=== PATIENT | male | born 1955 | race Caucasian/White ===

== ENCOUNTER → 2017-01-24 | Outpatient (CLI) | payer OTHER ==
[~2017-01-24] MED LIST: ATOR-24 PO; FLUO40CA8 PO; FRRS300 PO; GABA600T PO; GLC/500 PO; IPRA1AER2 INH; LISI-461 PO; MECL1TAB42 PO; PRLSR20 PO; ROPI1TAB PO; TAMS0.4C38 PO; TRAZ50TA35 PO
[2017-01-24 12:38] LABS: ALT/SGPT 19 U/L (12-78); BLOOD UREA NITROGEN 21 mg/dl (7-18); CALCIUM 9.2 mg/dl (8.5-10.1); CARBON DIOXIDE 26 mmol/L (21-32); CHLORIDE 106 mmol/L (98-107); CHOLESTEROL 155 mg/dl (0-200); GLUCOSE 137 mg/dl (70-99); SODIUM 137 mmol/L (136-145); TRIGLYCERIDES 120 mg/dl (0-150); VERY LOW DENSITY LIPOPROT CALC 24 mg/dl
[2017-01-24 12:40] LABS: CHOLESTEROL/HDL RATIO 3.6; HDL CHOLESTEROL 43 mg/dl; LDL CHOLESTEROL CALCULATED 88 mg/dl
[2017-01-24 13:44] LABS: ESTIMATED AVERAGE GLUCOSE 148 mg/dl; HA1C FLAG Normal (Normal)
== END | disposition home or self-care (01) ==
LOC: C.LABPBG 09:57
PROVIDERS: ATTEND Family Medicine
DX: Z11.59 Encounter for screening for other viral diseases (principal); E11.9 Type 2 diabetes mellitus without complications

== ENCOUNTER → 2017-01-29 | Day surgery (SDC) | payer OTHER ==
[2017-01-21 15:26] VITALS: Ht 175.3 cm; Wt 96.8 kg
[~2017-01-29] VITALS: Ht 175.3 cm; Wt 96.8 kg
[~2017-01-29] MED LIST changes: +LIDOCAINE HCL 2% 2 ML VIAL (20MG/ML) ONE; +PROPOFOL IV EMULSION 10 MG/ML 20 ML VIAL IV ONE; +SODIUM CHLORIDE 0.9% 500ML 500 ML IV ONE
--- NOTE | 2017-01-29 10:26 | Endo History and Physical ---
History & Physical Date of Service: Jan 29, 2017. Chief Complaint: Screening Referring Physician: Yessenia Mares History of Present Illness 61 yo CM who presents for colonoscopy secondary to history of colon polyps Past Surgical History Hx Cardiac Surgery: No Hx Internal Defibrillator: No Hx Pacemaker: No Hx Abdominal Surgery: Yes (INGUINAL HERNIA REPAIR) Hx of Implantable Prosthesis: No Hx Post-Op Nausea and Vomiting: No Hx Cancer Surgery: No Hx Thoracic Surgery: No Hx Orthopedic: Yes (LEFT WRIST SURGERY) Hx Urinary Tract Surgery: No Family History None Social History Smoking Status: Never Smoker Hx Substance Use: Yes (MORPHINE IN PAIN PUMP) Hx Alcohol Use: No Allergies Coded Allergies: Diclofenac (Verified Adverse Reaction, Intermediate, DIZZINESS, 01/29/17) Current Medications Reported Home Medications Medications Dose Route/Sig Max Daily Dose Days Date Category Trazodone (Trazodone HCl) 50 Mg Tab 50-100 Mg PO HS PRN 01/21/17 Reported Requip (Ropinirole HCl) 1 Mg Tab 1 Mg PO HS 01/21/17 Reported Meclizine Hcl 25 Mg Tab 1 Tab PO TID PRN 10 01/21/17 Reported Zestril (Lisinopril) 10 Mg Tab 10 Mg PO DAILY 01/21/17 Reported Neurontin (Gabapentin) 600 Mg Tab 600 Mg PO TID 01/21/17 Reported Prozac (Fluoxetine HCl) 40 Mg Cap 40 Mg PO QAM 01/21/17 Reported Combivent Respimat (Ipratropium-Albuterol) 1 Aer Aer 1 Puffs INH QID PRN 01/21/17 Reported Glucophage (Metformin Hcl) 500 Mg Tab 500 Mg PO BID 03/20/16 Reported Flomax (Tamsulosin Hcl) 0.4 Mg Cap 0.4 Mg PO DAILY 30 06/17/15 Reported Ferrous Sulfate 325 Mg Tab 325 Mg PO DAILY 06/17/15 Reported Prilosec (Omeprazole) 20 Mg Capcr 20 Mg PO BID 11/28/09 Reported Lipitor (Atorvastatin Calcium) 40 Mg Tab 80 Mg PO DAILY 11/01/08 Reported Vital Signs Weight (Kilograms): 96.82 Height (Feet): 5 Height (Inches): 9 Physical Exam General Appearance: WD/WN, no apparent distress Respiratory/Chest: Auscultation: breath sounds normal Cardiovascular: Heart Auscultation: RRR Abdomen: Bowel Sounds: normal Inspection & Palpation: soft, non-distended, no tenderness, guarding & rebound Assessment and Plan Assessment: 61 yo CM who presents for colonoscopy secondary to history of colon polyps Plan: Proceed with colonoscopy.
--- NOTE | 2017-01-29 10:48 | Discharge Instructions ---
Endoscopy Patient Instructions Date / Procedure(s) Performed Jan 29, 2017. Colonoscopy Allergy Information Coded Allergies: Diclofenac (Verified Adverse Reaction, Intermediate, DIZZINESS, 01/29/17) Discharge Date / Findings Jan 29, 2017. Diverticulosis Internal hemorrhoids Medication Instructions OK to resume all medications today as prescribed Reported Home Medications Medications Dose Route/Sig Max Daily Dose Days Date Category Trazodone (Trazodone HCl) 50 Mg Tab 50-100 Mg PO HS PRN 01/21/17 Reported Requip (Ropinirole HCl) 1 Mg Tab 1 Mg PO HS 01/21/17 Reported Meclizine Hcl 25 Mg Tab 1 Tab PO TID PRN 10 01/21/17 Reported Zestril (Lisinopril) 10 Mg Tab 10 Mg PO DAILY 01/21/17 Reported Neurontin (Gabapentin) 600 Mg Tab 600 Mg PO TID 01/21/17 Reported Prozac (Fluoxetine HCl) 40 Mg Cap 40 Mg PO QAM 01/21/17 Reported Combivent Respimat (Ipratropium-Albuterol) 1 Aer Aer 1 Puffs INH QID PRN 01/21/17 Reported Glucophage (Metformin Hcl) 500 Mg Tab 500 Mg PO BID 03/20/16 Reported Flomax (Tamsulosin Hcl) 0.4 Mg Cap 0.4 Mg PO DAILY 30 06/17/15 Reported Ferrous Sulfate 325 Mg Tab 325 Mg PO DAILY 06/17/15 Reported Prilosec (Omeprazole) 20 Mg Capcr 20 Mg PO BID 11/28/09 Reported Lipitor (Atorvastatin Calcium) 40 Mg Tab 80 Mg PO DAILY 11/01/08 Reported Provider Instructions Activity Restrictions - No exercising or heavy lifting for 24 hours. - Do not drink alcohol the day of the procedure. - Do not drive a car or operate machinery until the day after the procedure. - Do not make any important decisions or sign important papers in 24 hours after the procedure. Following Day: - Return to full activity which may include returning to work/school. Diet Start your diet with liquids and light foods (jello, soup, juice, toast). Then eat your usual diet if not nauseated. Treatment For Common After Affects For mild abdominal pain, bloating, or excessive gas: - Rest - Eat lightly - Lie on right side Follow-Up Information Follow-up with Yessenia Mares as scheduled Anesthesia Information What You Should Know You have had a procedure that required some medicine to reduce anxiety and discomfort. This treatment is called moderate sedation. After receiving the treatment, you may be sleepy, but you will be able to breathe on your own. The effects of the treatment may last for several hours. Follow these instructions along with Activity/Diet recommendations noted above: * Do NOT do anything where dizziness or clumsiness would be dangerous. * Rest quietly at home today, then you can be up and about tomorrow. * Have a responsible person stay with you the rest of today. * You may have had an I.V. today. If so, you may take the dressing off later today. Recommendations Call your doctor if: * Trouble breathing * Continuous vomiting for more than 24 hours * Temperature above 101 degrees * Severe abdominal pain or bloating * Pain not relieved by pain medicine ordered * There is increased drainage or redness from any incision * A large amount of rectal bleeding greater than 2-3 tablespoons. (If you had a polyp/s removed or have hemorrhoids, a small amount of blood - from the rectum is to be expected.) * You have any unanswered questions or concerns. IN THE EVENT OF A SERIOUS EMERGENCY, GO TO THE NEAREST EMERGENCY ROOM Your discharge instructions were prepared by provider Nikita Lombardo. Patient Instructions Signature Page Dillan Marie Patient (or Guardian) Signature/Date: I have read and understand the instructions given to me by my caregivers. Caregiver/RN/Doctor Signature/Date: The above-named patient and/or guardian has received patient instructions on this date. + Original Patient Signature Page (only) stays with chart. Please make copy for patient.
--- NOTE | 2017-01-29 10:53 | GI REPORT ---
Procedure Date: 01/29/2017 10:33 AM THIS REPORT HAS BEEN AMENDED Addendum Number: 1 Addendum Date: 01/29/2017 12:27:23 PM No specimens were obtained during this procedure, and therefore, no pathology is pending. Repeat colonoscopy in 5 years secondary to history of colon polyps. Procedure: Colonoscopy Indications: High risk colon cancer surveillance: Personal history of colonic polyps Medicines: Monitored Anesthesia Care Complications: No immediate complications. Estimated Blood Loss: Estimated blood loss: none. Procedure: Pre-Anesthesia Assessment: - Prior to the procedure, a History and Physical was performed, and patient medications and allergies were reviewed. The patient's tolerance of previous anesthesia was also reviewed. The risks and benefits of the procedure and the sedation options and risks were discussed with the patient. All questions were answered, and informed consent was obtained. Prior Anticoagulants: The patient has taken no previous anticoagulant or antiplatelet agents. ASA Grade Assessment: II - A patient with mild systemic disease. After reviewing the risks and benefits, the patient was deemed in satisfactory condition to undergo the procedure. After I obtained informed consent, the scope was passed under direct vision. Throughout the procedure, the patient's blood pressure, pulse, and oxygen saturations were monitored continuously. The On-site loaner was introduced through the anus and advanced to the terminal ileum. The colonoscopy was performed without difficulty. The patient tolerated the procedure well. The quality of the bowel preparation was good. The terminal ileum, ileocecal valve, appendiceal orifice, and rectum were photographed. Findings: The perianal and digital rectal examinations were normal. Multiple small-mouthed diverticula were found in the sigmoid colon. Non-bleeding internal hemorrhoids were found during retroflexion. The hemorrhoids were small. Impression: - Diverticulosis in the sigmoid colon. - Non-bleeding internal hemorrhoids. - No specimens collected. Recommendation: - Resume previous diet. - Continue present medications. - Repeat colonoscopy for surveillance based on pathology results. - Return to primary care physician as previously scheduled. Nikita Caroline LombardoDO 01/29/2017 10:53:30 AM This report has been signed electronically. Note Initiated On: 01/29/2017 10:33 AM I attest to the content of the Intraoperative Record and orders documented therein, exceptions below Nikita Velazquez Grupo, DO 01/29/2017 12:27:56 PM This report has been signed electronically.
[2017-01-29 11:20] VITALS: BP 148/94; PULSE 57; O2SAT 94
--- NOTE | 2017-01-29 11:41 | Anesthesiology Progress Note ---
Anesthesia Post Op Note Date & Time Jan 29, 2017 at 11:41 Vital Signs Pain Intensity: 0 Vital Signs Past 12 Hours Date Time Temp Pulse Resp B/P (MAP) Pulse Ox O2 Delivery O2 Flow Rate FiO2 01/29/17 11:20 57 18 148/94 (112) 94 Room Air 01/29/17 11:05 54 18 157/88 (111) 94 Room Air 01/29/17 10:50 65 18 130/79 (96) 96 Room Air 01/29/17 10:16 36.4 59 20 160/67 (98) 93 Room Air Notes Mental Status: alert / awake / arousable, participated in evaluation Pt Amnestic to Procedure: Yes Nausea / Vomiting: adequately controlled Pain: adequately controlled Airway Patency, RR, SpO2: stable & adequate BP & HR: stable & adequate Hydration State: stable & adequate Anesthetic Complications: no major complications apparent
== END | disposition home or self-care (01) ==
LOC: C.GI 09:50
PROVIDERS: ATTEND Internal Medicine
DX: Z12.11 Encounter for screening for malignant neoplasm of colon (principal); K64.8 Other hemorrhoids; Z86.010 Personal history of colon polyps; E11.9 Type 2 diabetes mellitus without complications; F32.9 Major depressive disorder, single episode, unspecified; F41.9 Anxiety disorder, unspecified; M19.90 Unspecified osteoarthritis, unspecified site; G47.33 Obstructive sleep apnea (adult) (pediatric); Z79.899 Other long term (current) drug therapy; Z68.31 Body mass index [BMI] 31.0-31.9, adult; Z98.41 Cataract extraction status, right eye

== ENCOUNTER → 2017-05-02 | Outpatient (CLI) | payer OTHER ==
[~2017-05-02] MED LIST changes: -LIDOCAINE HCL 2% 2 ML VIAL (20MG/ML) ONE; -PROPOFOL IV EMULSION 10 MG/ML 20 ML VIAL IV ONE; -SODIUM CHLORIDE 0.9% 500ML 500 ML IV ONE; +[UNRECOGNIZED DRUG - CODE]
[2017-05-02 18:12] LABS: BASO % 0.7 %; BASO ABS # 0.05 K/uL (0-0.2); EOS % 3.4 %; EOS ABS # 0.23 K/uL (0-0.5); HEMOGLOBIN 12.4 g/dL (14.0-18.0); IG# 0.01 K/uL (0.00-0.02); LYMPH % 35.7 %; LYMPH ABS # 2.39 K/uL (1.2-3.4); MEAN CORPUSCULAR HEMOGLOBIN 31.5 pg (25-34); MEAN CORPUSCULAR HGB CONC 31.8 g/dl (32-36); MEAN PLATELET VOLUME 11.3 fL (7.4-10.4); MONO % 8.8 %; MONO ABS # 0.59 K/uL (0.11-0.59); NEUT % 51.3 %; NEUT ABS # 3.42 K/uL (1.4-6.5); PLATELET COUNT 200 K/uL (130-400); RED CELL DISTRIBUTION WIDTH CV 12.3 % (11.5-14.5); RED CELL DISTRIBUTION WIDTH SD 44.4 fL (36.4-46.3); WHITE BLOOD COUNT 6.69 K/uL (4.8-10.8)
[2017-05-02 18:29] LABS: BLOOD UREA NITROGEN 18 mg/dl (7-18); CALCIUM 9.5 mg/dl (8.5-10.1); CARBON DIOXIDE 33 mmol/L (21-32); CREATININE 0.96 mg/dl (0.60-1.40); GLUCOSE 126 mg/dl (70-99); POTASSIUM 4.6 mmol/L (3.5-5.1); SODIUM 138 mmol/L (136-145)
== END | disposition home or self-care (01) ==
LOC: C.LABPBG 15:32
PROVIDERS: ATTEND Urology
DX: R42 Dizziness and giddiness (principal); R29.6 Repeated falls; G62.9 Polyneuropathy, unspecified; G25.81 Restless legs syndrome

== ENCOUNTER → 2017-06-17 | Outpatient (CLI) | payer OTHER ==
--- NOTE | 2017-06-19 10:32 | EEG Procedure Note ---
EEG Procedure Note Date of Service Jun 17, 2017. Start / End Times Start Time: 2:51 PM End Time: 3:12 PM Referring Physician SHADI Aldana History This is a 61-year-old male with history of the dazed state. EEG for further evaluation of possible seizure etiology. Home Medication List Scheduled Atorvastatin (Lipitor), 80 MG PO DAILY Ferrous Sulfate (Ferrous Sulfate), 325 MG PO DAILY Fluoxetine (Prozac), 40 MG PO QAM Gabapentin (Neurontin), 600 MG PO TID Lisinopril (Zestril), 10 MG PO DAILY Metformin Hcl (Glucophage), 500 MG PO BID Omeprazole (Prilosec), 20 MG PO BID Ropinirole (Requip), 1 MG PO HS Tamsulosin Hcl (Flomax), 0.4 MG PO DAILY Scheduled PRN Ipratropium-Albuterol (Combivent Respimat), 1 PUFFS INH QID PRN for Shortness of Breath Meclizine Hcl (Meclizine Hcl), 1 TAB PO TID PRN for VERTIGO Trazodone Hcl (Trazodone), 50-100 MG PO HS PRN for Sleep Miscellaneous Medications Oxymetazoline Hcl (Nasal [place] Sinus) Description This is a 21 electrode EEG with a single channel dedicated to limited EKG. The electrodes were placed in accordance with the International 10-20 system. At the start of the recording the patient was in an awake state. Background was well organized and composed of symmetric mixed alpha and beta frequencies. There was a symmetric well-formed moderate amplitude 9-10 Hz posterior dominant rhythm that was reactive to eye opening and closure. Hyperventilation was not done. Intermittent photic stimulation at various frequencies produced no abnormalities. Sleep was indicated by vertex waves and symmetric sleep spindles Interpretation This is a normal awake and asleep routine EEG. There was no electrographic seizures or epileptiform discharges. Clinical Correlation A normal EEG does not rule out epilepsy if there is a strong clinical suspicion.
== END | disposition home or self-care (01) ==
LOC: C.NEUR 14:37
PROVIDERS: ATTEND Physician Assistant
DX: R40.1 Stupor (principal); Z79.84 Long term (current) use of oral hypoglycemic drugs; Z79.899 Other long term (current) drug therapy

== ENCOUNTER 2017-08-09 14:01 | Inpatient (IN) | payer OTHER ==
[~2017-08-09] VITALS: Ht 170.2 cm; Wt 98.9 kg
[~2017-08-09 14:01] MED LIST changes: -FLUO40CA8 PO
[2017-08-09] MEDS ORDERED: ALBUT/IPRATROP 3MG/0.5MG NEB 3 ML VIAL INH STA ×2 (14:15→19:06)
--- NOTE | 2017-08-09 14:18 | EMERGENCY ROOM VISIT NOTE ---
History Report prepared by Allen: Lu Jones Under the Supervision of: Vinicio PonceO. 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 He notes he had chills but did not take his temperature. He also has swelling in his legs but does not know when it began. He states he feels lightheaded when he stands up. As per nursing staff, his oxygen saturation was 90% on room air. Pt denies headache, change in vision, fevers, chest pain, shortness of breath, nausea, vomiting, diarrhea, pain with urination, melena, wearing oxygen at home, or a history of heart problems or pneumonia. He reports his and son have been sick with a cough. 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 Negative changes in vision, history of heart problems or pneumonia. Review of Systems See HPI for pertinent positives & negatives. A total of 10 systems reviewed and were otherwise negative. Past Medical & Surgical Medical Problems: (1) Altered mental status (2) Diabetes (3) Gait abnormality (4) Hypoxemia Family History Patient reports no known family medical history. Social History Smoking Status: Never Smoker Housing Status: lives with family Occupation Status: retired Current/Historical Medications Scheduled Atorvastatin (Lipitor), 80 MG PO DAILY Ferrous Sulfate (Ferrous Sulfate), 325 MG PO DAILY Fluoxetine (Prozac), 40 MG PO QAM Fluticasone Propionate (Nasal) (Flonase Allergy Relief), 2 SPRAY JUAQUIN DAILY Gabapentin (Neurontin), 600 MG PO TID Lisinopril (Zestril), 10 MG PO DAILY Loratadine (Claritin), 10 MG PO DAILY Metformin Hcl (Glucophage), 500 MG PO BID Omeprazole (Prilosec), 20 MG PO BID Ranitidine (Zantac), 300 MG PO DAILY Ropinirole (Requip), 1 MG PO AMHS Tamsulosin Hcl (Flomax), 0.4 MG PO DAILY Scheduled PRN Ipratropium-Albuterol (Combivent Respimat), 1 PUFFS INH QID PRN for Shortness of Breath Meclizine Hcl (Meclizine Hcl), 1 TAB PO TID PRN for VERTIGO Sennosides-Docusate Sodium (Senna S), 1-2 TAB PO DAILY PRN for Constipation Trazodone Hcl (Trazodone), 50-100 MG PO HS PRN for Sleep Allergies Coded Allergies: Diclofenac (Verified Adverse Reaction, Intermediate, DIZZINESS, 01/29/17) Physical Exam Vital Signs Date Time Temp Pulse Resp B/P (MAP) Pulse Ox O2 Delivery O2 Flow Rate FiO2 08/09/17 23:16 83/56 08/09/17 23:11 62 17 97 08/09/17 23:01 78/47 08/09/17 22:46 80/51 08/09/17 22:41 66 24 95 08/09/17 22:36 61 94 Room Air 3.0 08/09/17 22:35 83/54 08/09/17 22:16 85/52 08/09/17 22:06 64 12 98 08/09/17 22:01 97/64 08/09/17 21:51 114/69 08/09/17 21:36 65 17 99 08/09/17 21:31 101/67 08/09/17 21:16 98/63 08/09/17 21:06 66 98 08/09/17 21:01 80/52 08/09/17 20:51 63 18 98 Nasal Cannula 3.0 08/09/17 20:46 97/61 08/09/17 20:38 69 08/09/17 20:32 98/47 08/09/17 20:21 72 26 98 08/09/17 20:17 108/57 08/09/17 19:46 101/65 08/09/17 19:45 61 23 99 Nasal Cannula 3.0 08/09/17 19:35 101/61 08/09/17 19:31 98/67 08/09/17 19:20 83/54 08/09/17 19:18 88/53 08/09/17 19:15 60 13 08/09/17 19:14 84/54 08/09/17 19:12 93/55 08/09/17 19:07 87/52 08/09/17 19:02 84/57 08/09/17 19:00 96/55 08/09/17 19:00 60 14 84/57 98 Nasal Cannula 3.0 08/09/17 18:02 65 16 93/59 98 Room Air 08/09/17 17:02 68 08/09/17 16:40 67 16 105/58 96 Nasal Cannula 3.0 08/09/17 15:07 95 Nasal Cannula 3.0 08/09/17 15:06 86 Room Air 08/09/17 14:09 37.0 72 16 99/55 90 Room Air 08/09/17 14:07 90 Room Air Physical Exam GENERAL: alert, well appearing, well nourished, no distress, non-toxic. Poor dentition. EYE EXAM: normal conjunctiva, PERRL and EOM's grossly intact OROPHARYNX: no exudate, no erythema, lips, buccal mucosa, and tongue normal and mucous membranes are moist NECK: supple, no nuchal rigidity, no adenopathy, non-tender LUNGS: Rhonci on the left posteriorly. HEART: no murmurs, S1 normal and S2 normal ABDOMEN: abdomen soft, non-tender, normo-active bowel sounds, no masses, no rebound or guarding. BACK: Back is symmetrical on inspection and there is no deformity, no midline tenderness, no CVA tenderness. SKIN: no rashes and no bruising UPPER EXTREMITIES: upper extremities are grossly normal. LOWER EXTREMITIES: 3+ BLE edema. RLE in walking boot. NEURO EXAM: Normal sensorium, cranial nerves II-XII grossly intact, normal speech, no gross weakness of arms, no gross weakness of legs. Medical Decision & Procedures ER Provider Diagnostic Interpretation: Radiology results have been interpreted by the radiologist and reviewed by me. CHEST 2 VIEWS ROUTINE CLINICAL HISTORY: Shortness of breath. Cough. COMPARISON STUDY: Chest radiograph October 20, 2015. FINDINGS: No pneumothorax or pleural effusion is identified. Cardiac size is normal. There is no evidence for pulmonary edema. Linear bibasilar opacities favor atelectasis. IMPRESSION: 1. No acute cardiopulmonary findings. 2. Linear bibasilar opacities suggestive of atelectasis. Electronically signed by: Fabricio Paul M.D. 08/09/2017 3:26 PM (CHEST FOR PE) ANGIO WITH CT DOSE: 671.87 mGy.cm HISTORY: Pain. Edema. TECHNIQUE: Multiaxial CT images of the chest were performed following the intravenous administration of contrast to evaluate the pulmonary arteries. Maximal intensity projection images were also obtained. A dose lowering technique was utilized adhering to the principles of ALARA. COMPARISON STUDY: None. FINDINGS: There is a normal caliber thoracic aorta with no evidence for dissection. There is no evidence for pulmonary embolus. No pleural effusions. No pneumothorax. The liver and spleen are unremarkable. No mediastinal or hilar lymphadenopathy. The central airways are patent. The lungs demonstrate basilar interstitial prominence bilaterally possibly inflammatory. IMPRESSION: 1. Study is negative for pulmonary embolus. 2. Mild bibasilar interstitial infiltrative change The above report was generated using voice recognition software. It may contain grammatical, syntax or spelling errors. Electronically signed by: Angel Neri M.D. 08/09/2017 4:41 PM ULTRASOUND BILATERAL LOWER EXTREMITY VENOUS CLINICAL HISTORY: Lower extremity edema. COMPARISON STUDY: No priors. TECHNIQUE: Real-time, grayscale, and color Doppler sonography of the deep veins of the right and left lower extremity was performed from the inguinal crease to the calf. Compression and augmentation were utilized. FINDINGS: There is no sonographic evidence of deep venous thrombosis identified in the right or left lower extremity. The common femoral, superficial femoral, and popliteal veins are patent and normally compressible bilaterally. The greater saphenous vein and the profunda femoris vein at the junction with the common femoral vein are clear in both legs. The visualized calf veins are patent bilaterally. IMPRESSION: There is no sonographic evidence of deep venous thrombosis identified in the right or left lower extremity. Electronically signed by: Jamison Isaac M.D. 08/09/2017 6:[address] SCAN OF THE BRAIN WITHOUT IV CONTRAST CLINICAL HISTORY: Frequent falls. COMPARISON STUDY: CT of the brain dated 10/17/2015. MRI of the brain dated 10/18/2015. TECHNIQUE: Unenhanced axial CT scan of the brain is performed from the vertex to the skull base. A dose lowering technique was utilized adhering to the principles of ALARA. CT DOSE: 687.98 mGy.cm FINDINGS: Brain parenchyma: There are age-related involutional changes noting minimal subcortical and periventricular microangiopathic change. There is no hemorrhage, mass effect, or evidence of acute territorial ischemia by CT criteria. Tripp-white matter is preserved. No extra-axial fluid collection is seen. Ventricles, sulci, cisterns: Prominent secondary to involutional change. Intracranial vasculature: Intracranial vessels at the skull base are normal as imaged. Calvarium: The skeletal structures are osteopenic. No depressed calvarial fracture is seen. Sinuses and mastoids: Trace mucosal thickening is seen within the maxillary antra and sphenoid sinuses. Moderate mucosal thickening is seen within the frontal and ethmoid sinuses. The mastoid air cells are well pneumatized. Orbits: The bony orbits are grossly intact. There is evidence of previous right ocular lens surgery. IMPRESSION: 1. There is no hemorrhage, mass effect, or evidence of acute territorial ischemia by CT criteria. 2. Paranasal sinus disease as above. Electronically signed by: Jamison Isaac M.D. 08/09/2017 8:08 PM Laboratory Results 08/09/17 14:55 Red Blood Count 3.48, Mean Corpuscular Volume 95.7, Mean Corpuscular Hemoglobin 32.2, Mean Corpuscular Hemoglobin Concent 33.6, Mean Platelet Volume 10.4, Neutrophils (%) (Auto) 63.8, Lymphocytes (%) (Auto) 21.0, Monocytes (%) (Auto) 13.9, Eosinophils (%) (Auto) 0.6, Basophils (%) (Auto) 0.4, Neutrophils # (Auto ) 6.30, Lymphocytes # (Auto) 2.07, Monocytes # (Auto) 1.37, Eosinophils # (Auto ) 0.06, Basophils # (Auto) 0.04 Test 08/09/17 14:55 08/09/17 21:30 08/09/17 21:54 08/09/17 23:10 White Blood Count 9.87 K/uL (4.8-10.8) Red Blood Count 3.48 M/uL (4.7-6.1) Hemoglobin 11.2 g/dL (14.0-18.0) Hematocrit 33.3 % (42-52) Mean Corpuscular Volume 95.7 fL (80-100) Mean Corpuscular Hemoglobin 32.2 pg (25-34) Mean Corpuscular Hemoglobin Concent 33.6 g/dl (32-36) Platelet Count 195 K/uL (130-400) Mean Platelet Volume 10.4 fL (7.4-10.4) Neutrophils (%) (Auto) 63.8 % Lymphocytes (%) (Auto) 21.0 % Monocytes (%) (Auto) 13.9 % Eosinophils (%) (Auto) 0.6 % Basophils (%) (Auto) 0.4 % Neutrophils # (Auto) 6.30 K/uL (1.4-6.5) Lymphocytes # (Auto) 2.07 K/uL (1.2-3.4) Monocytes # (Auto) 1.37 K/uL (0.11-0.59) Eosinophils # (Auto) 0.06 K/uL (0-0.5) Basophils # (Auto) 0.04 K/uL (0-0.2) RDW Standard Deviation 44.5 fL (36.4-46.3) RDW Coefficient of Variation 12.8 % (11.5-14.5) Immature Granulocyte % (Auto) 0.3 % Immature Granulocyte # (Auto) 0.03 K/uL (0.00-0.02) Prothrombin Time 10.9 SECONDS (9.0-12.0) Prothromb Time International Ratio 1.0 (0.9-1.1) D-Dimer 680 ug/L FEU (0-500) Total Bilirubin 1.1 mg/dl (0.2-1) Aspartate Amino Transf (AST/SGOT) 14 U/L (15-37) Alanine Aminotransferase (ALT/SGPT) 18 U/L (12-78) Alkaline Phosphatase 98 U/L (45-117) Pro-B-Type Natriuretic Peptide 388 pg/ml (0-900) Total Protein 7.5 gm/dl (6.4-8.2) Albumin 3.4 gm/dl (3.4-5.0) Globulin 4.1 gm/dl (2.5-4.0) Albumin/Globulin Ratio 0.8 (0.9-2) Thyroid Stimulating Hormone (TSH) 1.240 uIu/ml (0.300-4.500) Influenza Type A Antigen Neg for Influ A (NEG) Influenza Type B Antigen Neg for Influ B (NEG) Bedside Blood Gas pH (LAB) 7.31 (7.35-7.45) Bedside Blood Gas pCO2 (LAB) 56 mmHg (35-46) Bedside Blood Gas pO2 (LAB) 86 mmHg (80-95) Bedside Blood Gas HCO3 (LAB) 28 meq/L (19-24) Bedside Blood Gas Total CO2 30 mEq/l (24-31) Bedside Blood Gas Base Excess (LAB) 2.0 meq/L (-9-1.8) Bedside Blood Gas O2 Saturation 95.0 % (90-95) Procalcitonin < 0.05 ng/ml (0-0.5) Laboratory results per my review. Medications Administered Medications (Trade) Dose Ordered Sig/Colton Route Start Time Stop Time Status Last Admin Dose Admin Albuterol/ Ipratropium (Duoneb) 3 ml NOW STAT INH 08/09/17 14:15 08/09/17 14:18 DC 08/09/17 14:15 3 ML Sodium Chloride 500 ml @ 999 mls/hr Q31M STAT IV 08/09/17 18:10 08/09/17 18:40 DC 08/09/17 19:03 999 MLS/HR Albuterol/ Ipratropium (Duoneb) 3 ml NOW STAT INH 08/09/17 19:06 08/09/17 19:07 DC 08/09/17 19:06 3 ML Benzonatate (Tessalon Perles Cap) 100 mg NOW ONCE PO 08/09/17 20:45 08/09/17 20:46 DC 08/09/17 20:55 100 MG Sodium Chloride 500 ml @ 999 mls/hr Q31M STAT IV 08/09/17 21:04 08/09/17 21:34 DC 08/09/17 21:09 999 MLS/HR Acetaminophen (Tylenol Tab) 650 mg Q4H PRN PO 08/09/17 22:00 09/08/17 21:59 08/11/17 08:06 650 MG Sodium Chloride 1,000 ml @ 999 mls/hr Q1H1M STAT IV 08/09/17 22:18 08/09/17 23:18 DC 08/09/17 21:07 999 MLS/HR Sodium Chloride 500 ml @ 125 mls/hr Q4H STAT IV 08/09/17 22:59 08/09/17 23:50 DC 08/09/17 23:04 125 MLS/HR Sodium Chloride 1,000 ml @ 100 mls/hr Q10H IV 08/09/17 23:00 08/10/17 08:59 DC 08/10/17 02:06 100 MLS/HR ECG Per My Interpretation Indication: other (cough) Rate (beats per minute): 67 Rhythm: sinus rhythm Findings: T-wave inversion (leads III and AV, ), other (normal axis, normal intervals, hyperacute T waves in I and AVL) Comparison ECG Date: October 20, 2015 Change: no significant change ED Course 1407: The patient was evaluated in room C4. A complete history and physical exam was performed. 1415: Duoneb 3 ml INH 1810: Sodium Chloride 500 ml @ 999 mls/hr IV 185: I checked on the patient at this time. He states he feels much better but his blood pressure is still low so he will receive a bolus. His family is also at bedside and they provided additional medical history. 1905: Duoneb 3 ml INH 193: The family is now also now reporting patient with recent falls. Repeat blood pressure 101/67. 2044: Benzonatate 100 mg PO 2033: Dr. Rivera, [facility] Hospitalist will further evaluate the patient. Medical Decision Differential diagnosis: Etiologies such as infections, reactive airway disease, pneumonia, pneumothorax , COPD, CHF, cardiac ischemia, pulmonary embolism, musculoskeletal, gastrointestinal, as well as others were entertained. Unclear etiology of hypoxia. Pt with cough here, but no leukocytosis or fever. Initially LE edema, decr BS, and hypoxia suggestive of CHF. CTA chest negative for PE and overt pulm edema. Possible inflammatory process noted, but no overt consolidation. I do not suspect bacteremia/sepsis. Pt with borderline BP's initially and given concern for CHF, not initially bolused with IVF. Pt with intermittent hypotension that were fluid responsive. Caution was used in bolusing as unknown cardiac function, however no evidence of increased WOB with increased IVF to suggest evolving pulmonary edema. Possible component of hypercapnia given pt noncompliant with FAITH and seems to have underlying COPD given 's description of prior tobacco abuse and prior use of MDI's. Pt ran out and hasn't been using them, reported mild improvement here with nebs. Pt somnolent but arousable, gave additional history. Mild hypercapnia noted on ABG. Discussed with hospitalist for admission. Cultures added and broad spectrum antibiotics ordered after discussion. Lactic acid added and procalcitonin added. Medication Reconcilliation Current Medication List: was personally reviewed by me Blood Pressure Screening Patient's blood pressure: Low blood pressure Blood pressure disposition: Referred to PCP Consults Time Called: 2029 Consulting Physician: Dr. Rivera [facility] Hospitalist Returned Call: [phone]: Dr. Rivera [facility] Hospitalist will further evaluate the patient. Impression Primary Impression: Cough Additional Impressions: Hypoxia Lower extremity edema Obesity Scribe Attestation The scribe's documentation has been prepared under my direction and personally reviewed by me in its entirety. I confirm that the note above accurately reflects all work, treatment, procedures, and medical decision making performed by me. Departure Information Dispostion Being Evaluated By Hospitalist (Dr. Rivera, [facility] Hospitalist ) Referrals Yessenia Mares MD (PCP) Patient Instructions My [facility] Problem Qualifiers Additional Impressions: Obesity Obesity type: unspecified obesity type Obesity classification: unspecified obesity classification Serious obesity comorbidity presence: unspecified whether serious comorbidity present Qualified Codes: E66.9 - Obesity, unspecified
[2017-08-09] MEDS ORDERED: CLR10 PO (14:19)
[2017-08-09] MEDS ORDERED: FLUT0.15 NAE (14:19)
[2017-08-09] MEDS ORDERED: FLUO40CA8 PO (14:19)
[2017-08-09] MEDS ORDERED: RANI300T2 PO (14:19)
[2017-08-09] MEDS ORDERED: SENN-91 PO (14:19)
[2017-08-09 15:09] LABS: BASO % 0.4 %; BASO ABS # 0.04 K/uL (0-0.2); EOS % 0.6 %; EOS ABS # 0.06 K/uL (0-0.5); HEMATOCRIT 33.3 % (42-52); HEMOGLOBIN 11.2 g/dL (14.0-18.0); IG# 0.03 K/uL (0.00-0.02); LYMPH ABS # 2.07 K/uL (1.2-3.4); MEAN CELL VOLUME 95.7 fL (80-100); MEAN CORPUSCULAR HEMOGLOBIN 32.2 pg (25-34); MEAN CORPUSCULAR HGB CONC 33.6 g/dl (32-36); MEAN PLATELET VOLUME 10.4 fL (7.4-10.4); MONO % 13.9 %; MONO ABS # 1.37 K/uL (0.11-0.59); NEUT % 63.8 %; PLATELET COUNT 195 K/uL (130-400); RED CELL DISTRIBUTION WIDTH CV 12.8 % (11.5-14.5); RED CELL DISTRIBUTION WIDTH SD 44.5 fL (36.4-46.3); WHITE BLOOD COUNT 9.87 K/uL (4.8-10.8)
--- NOTE | 2017-08-09 15:27 | DIAGNOSTIC IMAGING REPORT ---
CHEST 2 VIEWS ROUTINE CLINICAL HISTORY: Shortness of breath. Cough. COMPARISON STUDY: Chest radiograph October 20, 2015. FINDINGS: No pneumothorax or pleural effusion is identified. Cardiac size is normal. There is no evidence for pulmonary edema. Linear bibasilar opacities favor atelectasis. IMPRESSION: 1. No acute cardiopulmonary findings. 2. Linear bibasilar opacities suggestive of atelectasis. Electronically signed by: Fabricio Paul M.D. 08/09/2017 3:26 PM Dictated Date/Time: 08/09/2017 3:25 PM
[2017-08-09 15:35] LABS: ALBUMIN 3.4 gm/dl (3.4-5.0); ALT/SGPT 18 U/L (12-78); AST/SGOT 14 U/L (15-37); BLOOD UREA NITROGEN 20 mg/dl (7-18); CARBON DIOXIDE 30 mmol/L (21-32); CREATININE 1.28 mg/dl (0.60-1.40); GLUCOSE 125 mg/dl (70-99); POTASSIUM 4.1 mmol/L (3.5-5.1); SODIUM 132 mmol/L (136-145)
[2017-08-09 15:44] LABS: ALKALINE PHOSPHATASE 98 U/L (45-117); TOTAL PROTEIN 7.5 gm/dl (6.4-8.2)
[2017-08-09] MEDS ORDERED: OPTIRAY 320 IV PRN (15:45)
--- NOTE | 2017-08-09 16:43 | DIAGNOSTIC IMAGING REPORT ---
(CHEST FOR PE) ANGIO WITH CT DOSE: 671.87 mGy.cm HISTORY: Pain. Edema. TECHNIQUE: Multiaxial CT images of the chest were performed following the intravenous administration of contrast to evaluate the pulmonary arteries. Maximal intensity projection images were also obtained. A dose lowering technique was utilized adhering to the principles of ALARA. COMPARISON STUDY: None. FINDINGS: There is a normal caliber thoracic aorta with no evidence for dissection. There is no evidence for pulmonary embolus. No pleural effusions. No pneumothorax. The liver and spleen are unremarkable. No mediastinal or hilar lymphadenopathy. The central airways are patent. The lungs demonstrate basilar interstitial prominence bilaterally possibly inflammatory. IMPRESSION: 1. Study is negative for pulmonary embolus. 2. Mild bibasilar interstitial infiltrative change The above report was generated using voice recognition software. It may contain grammatical, syntax or spelling errors. Electronically signed by: Angel Neri M.D. 08/09/2017 4:41 PM Dictated Date/Time: 08/09/2017 4:37 PM
[2017-08-09] MEDS ORDERED: SODIUM CHLORIDE 0.9% 500ML 500 ML IV STA ×3 (18:10→22:59)
--- NOTE | 2017-08-09 18:52 | DIAGNOSTIC IMAGING REPORT ---
ULTRASOUND BILATERAL LOWER EXTREMITY VENOUS CLINICAL HISTORY: Lower extremity edema. COMPARISON STUDY: No priors. TECHNIQUE: Real-time, grayscale, and color Doppler sonography of the deep veins of the right and left lower extremity was performed from the inguinal crease to the calf. Compression and augmentation were utilized. FINDINGS: There is no sonographic evidence of deep venous thrombosis identified in the right or left lower extremity. The common femoral, superficial femoral, and popliteal veins are patent and normally compressible bilaterally. The greater saphenous vein and the profunda femoris vein at the junction with the common femoral vein are clear in both legs. The visualized calf veins are patent bilaterally. IMPRESSION: There is no sonographic evidence of deep venous thrombosis identified in the right or left lower extremity. Electronically signed by: Jamison Isaac M.D. 08/09/2017 6:50 PM Dictated Date/Time: 08/09/2017 6:50 PM
--- NOTE | 2017-08-09 20:09 | DIAGNOSTIC IMAGING REPORT ---
CT SCAN OF THE BRAIN WITHOUT IV CONTRAST CLINICAL HISTORY: Frequent falls. COMPARISON STUDY: CT of the brain dated 10/17/2015. MRI of the brain dated 10/18/2015. TECHNIQUE: Unenhanced axial CT scan of the brain is performed from the vertex to the skull base. A dose lowering technique was utilized adhering to the principles of ALARA. CT DOSE: 687.98 mGy.cm FINDINGS: Brain parenchyma: There are age-related involutional changes noting minimal subcortical and periventricular microangiopathic change. There is no hemorrhage, mass effect, or evidence of acute territorial ischemia by CT criteria. Tripp-white matter is preserved. No extra-axial fluid collection is seen. Ventricles, sulci, cisterns: Prominent secondary to involutional change. Intracranial vasculature: Intracranial vessels at the skull base are normal as imaged. Calvarium: The skeletal structures are osteopenic. No depressed calvarial fracture is seen. Sinuses and mastoids: Trace mucosal thickening is seen within the maxillary antra and sphenoid sinuses. Moderate mucosal thickening is seen within the frontal and ethmoid sinuses. The mastoid air cells are well pneumatized. Orbits: The bony orbits are grossly intact. There is evidence of previous right ocular lens surgery. IMPRESSION: 1. There is no hemorrhage, mass effect, or evidence of acute territorial ischemia by CT criteria. 2. Paranasal sinus disease as above. Electronically signed by: Jamison Isaac M.D. 08/09/2017 8:08 PM Dictated Date/Time: 08/09/2017 8:05 PM
[2017-08-09] MEDS ORDERED: BENZONATATE 100MG CAP PO ONE (20:45)
--- NOTE | 2017-08-09 21:40 | History and Physical ---
History & Physical Date & Time of Service: Aug 09, 2017 at 21:09 Chief Complaint: Illness Primary Care Physician: Yessenia Mares MD Past Medical/Surgical History Medical Problems: (1) Diabetes (2) Elevated troponin (3) Fever Family History Patient reports no known family medical history. Social History Smoking Status: Former Smoker Housing status: lives with family Occupational Status: retired Immunizations History of Influenza Vaccine: Unknown History of Tetanus Vaccine?: Unknown History of Pneumococcal: Unknown History of Hepatitis B Vaccine: Unknown Allergies Coded Allergies: Diclofenac (Verified Adverse Reaction, Intermediate, DIZZINESS, 01/29/17) Home Medications Scheduled Atorvastatin (Lipitor), 80 MG PO DAILY Ferrous Sulfate (Ferrous Sulfate), 325 MG PO DAILY Fluoxetine (Prozac), 40 MG PO QAM Fluticasone Propionate (Nasal) (Flonase Allergy Relief), 2 SPRAY JUAQUIN DAILY Gabapentin (Neurontin), 600 MG PO TID Lisinopril (Zestril), 10 MG PO DAILY Loratadine (Claritin), 10 MG PO DAILY Metformin Hcl (Glucophage), 500 MG PO BID Omeprazole (Prilosec), 20 MG PO BID Ranitidine (Zantac), 300 MG PO DAILY Ropinirole (Requip), 1 MG PO AMHS Tamsulosin Hcl (Flomax), 0.4 MG PO DAILY Scheduled PRN Ipratropium-Albuterol (Combivent Respimat), 1 PUFFS INH QID PRN for Shortness of Breath Meclizine Hcl (Meclizine Hcl), 1 TAB PO TID PRN for VERTIGO Sennosides-Docusate Sodium (Senna S), 1-2 TAB PO DAILY PRN for Constipation Trazodone Hcl (Trazodone), 50-100 MG PO HS PRN for Sleep Physical Exam Vital Signs Date Time Temp Pulse Resp B/P (MAP) Pulse Ox O2 Delivery O2 Flow Rate FiO2 08/09/17 20:38 69 08/09/17 19:46 101/65 08/09/17 19:45 61 23 99 Room Air 08/09/17 19:35 101/61 08/09/17 19:31 98/67 08/09/17 19:20 83/54 08/09/17 19:18 88/53 4/27/18 19:15 60 13 08/09/17 19:14 84/54 08/09/17 19:12 93/55 08/09/17 19:07 87/52 08/09/17 19:02 84/57 08/09/17 19:00 96/55 08/09/17 19:00 60 14 84/57 98 Nasal Cannula 3.0 08/09/17 18:02 65 16 93/59 98 Room Air 08/09/17 17:02 68 08/09/17 16:40 67 16 105/58 96 Nasal Cannula 3.0 08/09/17 15:07 95 Nasal Cannula 3.0 08/09/17 15:06 86 Room Air 08/09/17 14:09 37.0 72 16 99/55 90 Room Air 08/09/17 14:07 90 Room Air Diagnostics Laboratory Results Results Past 24 Hours Test 08/09/17 14:55 08/09/17 19:16 Range/Units White Blood Count 9.87 4.8-10.8 K/uL Red Blood Count 3.48 4.7-6.1 M/uL Hemoglobin 11.2 14.0-18.0 g/dL Hematocrit 33.3 42-52 % Mean Corpuscular Volume 95.7 80-100 fL Mean Corpuscular Hemoglobin 32.2 25-34 pg Mean Corpuscular Hemoglobin Concent 33.6 32-36 g/dl Platelet Count 195 130-400 K/uL Mean Platelet Volume 10.4 7.4-10.4 fL Neutrophils (%) (Auto) 63.8 % Lymphocytes (%) (Auto) 21.0 % Monocytes (%) (Auto) 13.9 % Eosinophils (%) (Auto) 0.6 % Basophils (%) (Auto) 0.4 % Neutrophils # (Auto) 6.30 1.4-6.5 K/uL Lymphocytes # (Auto) 2.07 1.2-3.4 K/uL Monocytes # (Auto) 1.37 0.11-0.59 K/uL Eosinophils # (Auto) 0.06 0-0.5 K/uL Basophils # (Auto) 0.04 0-0.2 K/uL RDW Standard Deviation 44.5 36.4-46.3 fL RDW Coefficient of Variation 12.8 11.5-14.5 % Immature Granulocyte % (Auto) 0.3 % Immature Granulocyte # (Auto) 0.03 0.00-0.02 K/uL Prothrombin Time 10.9 9.0-12.0 SECONDS Prothromb Time International Ratio 1.0 0.9-1.1 D-Dimer 680 0-500 ug/L FEU Sodium Level 132 136-145 mmol/L Potassium Level 4.1 3.5-5.1 mmol/L Chloride Level 96 98-107 mmol/L Carbon Dioxide Level 30 21-32 mmol/L Anion Gap 6.0 3-11 mmol/L Blood Urea Nitrogen 20 7-18 mg/dl Creatinine 1.28 0.60-1.40 mg/dl Est Creatinine Clear Calc Drug Dose 69.2 ml/min Estimated GFR () 69.5 Estimated GFR (Non- 60.0 BUN/Creatinine Ratio 15.7 10-20 Random Glucose 125 70-99 mg/dl Calcium Level 9.0 8.5-10.1 mg/dl Total Bilirubin 1.1 0.2-1 mg/dl Aspartate Amino Transf (AST/SGOT) 14 15-37 U/L Alanine Aminotransferase (ALT/SGPT) 18 12-78 U/L Alkaline Phosphatase 98 45-117 U/L Troponin I < 0.015 0-0.045 ng/ml Pro-B-Type Natriuretic Peptide 388 0-900 pg/ml Total Protein 7.5 6.4-8.2 gm/dl Albumin 3.4 3.4-5.0 gm/dl Globulin 4.1 2.5-4.0 gm/dl Albumin/Globulin Ratio 0.8 0.9-2 Diagnostic Radiology CTA: 1. Study is negative for pulmonary embolus. 2. Mild bibasilar interstitial infiltrative change Impression Resuscitation Status
[2017-08-09] MEDS ORDERED: NURSING VERBAL MED ORDER ONE (22:00)
[2017-08-09] MEDS ORDERED: ALUMINUM/MAGNESIUM/SIMETH (MAALOX MAX) 30 ML UDC PO PRN (22:00)
[2017-08-09] MEDS ORDERED: ONDANSETRON INJ 2 MG/ML 2 ML VIAL IV PRN (22:00)
[2017-08-09] MEDS ORDERED: POLYETHYLENE (MIRALAX) 17 GM PACK PO PRN (22:00)
[2017-08-09] MEDS ORDERED: MAGNESIUM HYDROXIDE SUSP 30 ML UDC PO PRN (22:00)
[2017-08-09 22:08] LABS: INFLUENZA B ANTIGEN Neg for Influ B (NEG)
--- NOTE | 2017-08-09 22:09 | History and Physical ---
History & Physical Date & Time of Service: Aug 09, 2017 at 21:55 Chief Complaint: Illness Primary Care Physician: Yessenia Mares MD History of Present Illness Source: patient 61 y/o M Hx HTN, HPL, BPH, FAITH, obese. The pt was brought to the ER at [facility]. They describe an unsteady gait and 3 separate falls recently in addition to progressive confusion. It is unknown if had sustained any head trauma during his falls. The pt's also states that he has been coughing over the past 4 days. The pt is somnolent and did not meaningfully contribute to the HPI. He states that he had "a fit" and when asked to elaborate, a relative volunteered that he had broken off the faucet in the bathtub. He also states that he has been persistently lightheaded and voiced concern over progressive lower extremity edema which he states is new over the past few weeks. On arrival to the ER, it was noted that the pt was hypoxic into the 80s and that his SBP was low, occasionally below 90. His BP did respond to a fluid bolus which did not in turn, worsen his respiratory status. Initial labs revealed an elevated D dimer. The pt was subsequently sent for a CTA which was negative for PE, but did show BL basilar infiltrates consistent with an inflammatory process. An EKG is abnormal indicating LVH and possibly a previous inferior infarct. As an aside, the pt has a R ankle fracture and was due to have an MRI AM - his states that they had to schedule in advance with someone who would disable his morphine pump for the test. Past Medical/Surgical History 1) FAITH - noncompliant with CPAP 2) Chronic back pain with morphine pump 3) Obese 4) DM II 5) HTN 6) HPL 7) BPH Family History Patient reports no known family medical history. States parent of old age, however, they were approximately age 70 Social History The pt smoked for a short time several years ago. 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 He does not drink alcohol. Smoking Status: Former Smoker Housing status: lives with family Occupational Status: retired Immunizations History of Influenza Vaccine: Unknown History of Tetanus Vaccine?: Unknown History of Pneumococcal: Unknown History of Hepatitis B Vaccine: Unknown Allergies Coded Allergies: Diclofenac (Verified Adverse Reaction, Intermediate, DIZZINESS, 01/29/17) Home Medications Scheduled Atorvastatin (Lipitor), 80 MG PO DAILY Ferrous Sulfate (Ferrous Sulfate), 325 MG PO DAILY Fluoxetine (Prozac), 40 MG PO QAM Fluticasone Propionate (Nasal) (Flonase Allergy Relief), 2 SPRAY JUAQUIN DAILY Gabapentin (Neurontin), 600 MG PO TID Lisinopril (Zestril), 10 MG PO DAILY Loratadine (Claritin), 10 MG PO DAILY Metformin Hcl (Glucophage), 500 MG PO BID Omeprazole (Prilosec), 20 MG PO BID Ranitidine (Zantac), 300 MG PO DAILY Ropinirole (Requip), 1 MG PO AMHS Tamsulosin Hcl (Flomax), 0.4 MG PO DAILY Scheduled PRN Ipratropium-Albuterol (Combivent Respimat), 1 PUFFS INH QID PRN for Shortness of Breath Meclizine Hcl (Meclizine Hcl), 1 TAB PO TID PRN for VERTIGO Sennosides-Docusate Sodium (Senna S), 1-2 TAB PO DAILY PRN for Constipation Trazodone Hcl (Trazodone), 50-100 MG PO HS PRN for Sleep Review of Systems Cannot reliably obtain from pt - complaints include LE edema, confusion, unstable gait and falls, cough x 4 days Physical Exam Vital Signs Date Time Temp Pulse Resp B/P (MAP) Pulse Ox O2 Delivery O2 Flow Rate FiO2 08/09/17 21:01 80/52 08/09/17 20:51 63 18 98 Nasal Cannula 3.0 08/09/17 20:46 97/61 08/09/17 20:38 69 08/09/17 20:32 98/47 08/09/17 20:21 72 26 98 08/09/17 20:17 108/57 08/09/17 19:46 101/65 08/09/17 19:45 61 23 99 Nasal Cannula 3.0 08/09/17 19:35 101/61 08/09/17 19:31 98/67 08/09/17 19:20 83/54 08/09/17 19:18 88/53 08/09/17 19:15 60 13 08/09/17 19:14 84/54 08/09/17 19:12 93/55 08/09/17 19:07 87/52 08/09/17 19:02 84/57 08/09/17 19:00 96/55 08/09/17 19:00 60 14 84/57 98 Nasal Cannula 3.0 08/09/17 18:02 65 16 93/59 98 Room Air 08/09/17 17:02 68 08/09/17 16:40 67 16 105/58 96 Nasal Cannula 3.0 08/09/17 15:07 95 Nasal Cannula 3.0 08/09/17 15:06 86 Room Air 08/09/17 14:09 37.0 72 16 99/55 90 Room Air 08/09/17 14:07 90 Room Air General Appearance: + pertinent finding (Obese, middle-aged male - somnolent - no acute distress - apneic episodes are apparent when he falls asleep. ) Head: normocephalic Eyes: normal inspection ENT: normal ENT inspection, pharynx normal Neck: supple Respiratory/Chest: chest non-tender, lungs clear Cardiovascular: regular rate, rhythm, no gallop, + pertinent finding (JVD exam is limited due to habitus) Abdomen/GI: normal bowel sounds, non tender, soft Back: normal inspection, no CVA tenderness Extremities/Musculoskelatal: normal inspection, no calf tenderness Neurologic/Psych: vocational placement specialist II-XII nml as tested, + pertinent finding (Somnolent AAO x 2) Skin: normal color, warm/dry Diagnostics Laboratory Results Results Past 24 Hours Test 08/09/17 14:55 08/09/17 19:16 08/09/17 21:23 08/09/17 21:30 Range/Units White Blood Count 9.87 4.8-10.8 K/uL Red Blood Count 3.48 4.7-6.1 M/uL Hemoglobin 11.2 14.0-18.0 g/dL Hematocrit 33.3 42-52 % Mean Corpuscular Volume 95.7 80-100 fL Mean Corpuscular Hemoglobin 32.2 25-34 pg Mean Corpuscular Hemoglobin Concent 33.6 32-36 g/dl Platelet Count 195 130-400 K/uL Mean Platelet Volume 10.4 7.4-10.4 fL Neutrophils (%) (Auto) 63.8 % Lymphocytes (%) (Auto) 21.0 % Monocytes (%) (Auto) 13.9 % Eosinophils (%) (Auto) 0.6 % Basophils (%) (Auto) 0.4 % Neutrophils # (Auto) 6.30 1.4-6.5 K/uL Lymphocytes # (Auto) 2.07 1.2-3.4 K/uL Monocytes # (Auto) 1.37 0.11-0.59 K/uL Eosinophils # (Auto) 0.06 0-0.5 K/uL Basophils # (Auto) 0.04 0-0.2 K/uL RDW Standard Deviation 44.5 36.4-46.3 fL RDW Coefficient of Variation 12.8 11.5-14.5 % Immature Granulocyte % (Auto) 0.3 % Immature Granulocyte # (Auto) 0.03 0.00-0.02 K/uL Prothrombin Time 10.9 9.0-12.0 SECONDS Prothromb Time International Ratio 1.0 0.9-1.1 D-Dimer 680 0-500 ug/L FEU Sodium Level 132 136-145 mmol/L Potassium Level 4.1 3.5-5.1 mmol/L Chloride Level 96 98-107 mmol/L Carbon Dioxide Level 30 21-32 mmol/L Anion Gap 6.0 3-11 mmol/L Blood Urea Nitrogen 20 7-18 mg/dl Creatinine 1.28 0.60-1.40 mg/dl Est Creatinine Clear Calc Drug Dose 69.2 ml/min Estimated GFR () 69.5 Estimated GFR (Non- 60.0 BUN/Creatinine Ratio 15.7 10-20 Random Glucose 125 70-99 mg/dl Calcium Level 9.0 8.5-10.1 mg/dl Total Bilirubin 1.1 0.2-1 mg/dl Aspartate Amino Transf (AST/SGOT) 14 15-37 U/L Alanine Aminotransferase (ALT/SGPT) 18 12-78 U/L Alkaline Phosphatase 98 45-117 U/L Troponin I < 0.015 0-0.045 ng/ml Pro-B-Type Natriuretic Peptide 388 0-900 pg/ml Total Protein 7.5 6.4-8.2 gm/dl Albumin 3.4 3.4-5.0 gm/dl Globulin 4.1 2.5-4.0 gm/dl Albumin/Globulin Ratio 0.8 0.9-2 Diagnostic Radiology CTA: There is a normal caliber thoracic aorta with no evidence for dissection. There is no evidence for pulmonary embolus. No pleural effusions. No pneumothorax. The liver and spleen are unremarkable. No mediastinal or hilar lymphadenopathy. The central airways are patent. The lungs demonstrate basilar interstitial prominence bilaterally possibly inflammatory. EKG Sinus, LVH, inferior inversions Impression Assessment and Plan 61 y/o M Hx HTN, HPL, BPH, FAITH, obese. The pt was brought to the ER at [facility]. They describe an unsteady gait and 3 separate falls recently in addition to progressive confusion. It is unknown if had sustained any head trauma during his falls. The pt's also states that he has been coughing over the past 4 days. The pt is somnolent and did not meaningfully contribute to the HPI. He states that he had "a fit" and when asked to elaborate, a relative volunteered that he had broken off the faucet in the bathtub. He also states that he has been persistently lightheaded and voiced concern over progressive lower extremity edema which he states is new over the past few weeks. On arrival to the ER, it was noted that the pt was hypoxic into the 80s and that his SBP was low, occasionally below 90. His BP did respond to a fluid bolus which did not in turn, worsen his respiratory status. Initial labs revealed an elevated D dimer. The pt was subsequently sent for a CTA which was negative for PE, but did show BL basilar infiltrates consistent with an inflammatory process. An EKG is abnormal indicating LVH and possibly a previous inferior infarct. 1) Hypoxia - may be chronic as he was not c/o SOB - he is overweight with untreated FAITH. 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 A recent cough is described and inflammatory changes are present on a CT. There is no fever or leukocytosis to support pneumonia otherwise. We will currently treat with nebulizers and an 02 protocol. A procalcitonin is pending to further evaluate for PNM. ABG is pending to evaluate for CO2 retention. 2) AMS/confusion - unsteady gait and falls - may be due to FAITH and retention - infectious process may be contributing. A CT head is negative - would consider an MRI with harlan AM although we may need to address his morphine pump prior. It is certainly possibly that he is suffering from a chronic, progressive, cognitive process which is now becoming clinically apparent. Polypharmacy is an additional etiology to be considered as his meds include Trazodone, Ropinirole, Fluoxetine and Morphine. PT/OT to assess gait AM. 3) Hypotension - responded to fluids and may be due to dehydration - there is mild hyponatremia and an elevated BUN to support this. There is no current evidence of sepsis. Procalcitonin and lactic acid are pending. 4) LE edema - may be due to stasis. CHF is less likely as a CT does not support the diagnosis, he was exhibiting hypotension on arrival, and a fluid bolus did not affect his respiratory status. LE dopplers are negative. 5) DM II - placed on SS - Metformin held. 6) HTN - antihypertensives held presently. 7) FAITH - we will apply CPAP if there is retention confirmed on ABG - he is encouraged to comply going forward. His stated that noncompliance was due to an insurance issue which can perhaps be addressed prior to DC. 8) BPH - cont Flomax. 9) Abnormal EKG - echo is pending for AM. Full code - prophylaxis held due to fall risk an confusion Total time for this admit including review of labs, meds, imaging, records - discussion with pt and ER attending - 40 min Resuscitation Status VTE Prophylaxis Will order VTE Prophylaxis: No Reason for no VTE drug order: Contraindicated Reason no Mechanical VTE Order: Contraindicated
[2017-08-09] MEDS ORDERED: SODIUM CHLORIDE 0.9% 1000ML 1,000 ML IV STA (22:18)
[2017-08-09] MEDS ORDERED: DOCUSATE SODIUM/SENNA 50/8.6MG TAB PO PRN ×2 (23:00)
[2017-08-09] MEDS ORDERED: SODIUM CHLORIDE 0.9% 1000ML 1,000 ML IV SCH (23:00)
[2017-08-09] MEDS ORDERED: IV FLUIDS COMPLETED PRN (23:00)
[2017-08-09] MEDS ORDERED: DEXTROSE 50% 50 ML SYR IV PRN (23:45)
[2017-08-09] MEDS ORDERED: GLUCOSE 10 TABS/TUBE PO PRN (23:45)
[2017-08-09] MEDS ORDERED: GLUCOSE 40% GEL 15 GM TUBE PO PRN (23:45)
[2017-08-09] MEDS ORDERED: GLUCAGON FOR INJ 1 MG VIAL SQ PRN (23:45)
[2017-08-09] MEDS ORDERED: PIPERACILLIN/TAZOBACTAM 4.5 GM/100ML D5W IV STA (23:47)
[2017-08-09] MEDS ORDERED: LEVAQUIN 750MG / 150ML D5W IV STA (23:47)
[2017-08-09 23:58] VITALS: BP 103/65; PULSE 70; TEMP 36.8; O2SAT 90; Ht 170.2 cm; Wt 98.9 kg
[2017-08-10] VITALS (7 sets, daily range): BP systolic 102–140; BP diastolic 55–72; PULSE 59–72; TEMP 36.5–37; O2SAT 94–97
[2017-08-10] MEDS ORDERED: ALBUT/IPRATROP 3MG/0.5MG NEB 3 ML VIAL INH PRN (00:15)
[2017-08-10 06:58] LABS: CREATININE 0.94 mg/dl (0.60-1.40)
[2017-08-10 06:59] LABS: CALCIUM 8.8 mg/dl (8.5-10.1); POTASSIUM 4.1 mmol/L (3.5-5.1)
[2017-08-10] MEDS: INSULIN ASPART 100 UNITS/ML 3 ML PEN SC SCH ×4 (07:00→21:00)
[2017-08-10] MEDS: ROPINIROLE HCL 1 MG TAB PO SCH ×2 (07:50→21:12)
[2017-08-10] MEDS: GABAPENTIN 600 MG TAB PO SCH ×3 (07:50→21:11)
[2017-08-10] MEDS: PANTOprazole SOD 40 MG TAB PO SCH ×2 (07:51→21:12)
[2017-08-10] MEDS: ATORVASTATIN 40 MG TAB PO SCH (07:53)
[2017-08-10] MEDS: TAMSULOSIN HCL 0.4 MG CAP PO SCH (07:53)
[2017-08-10] MEDS: FLUOXETINE HCL 20 MG CAP PO SCH (07:54)
[2017-08-10] MEDS ORDERED: MAGNESIUM SULFATE 1GM / D5W 100 ML IV STA (09:16)
--- NOTE | 2017-08-10 12:15 | ECHOCARDIOGRAM REPORT ---
*NOTICE TO RECEIVING REPUBLICAN AGENCY This information is strictly Confidential and protected under [place] law. [place] law prohibits you from making any further disclosure of this information unless further disclosure is expressly permitted by the written consent of the person to whom it pertains or is authorized by law. A general authorization for the release of medical or other information is not sufficient for this purpose. Hospital accepts no responsibility if the information is made available to any other person, INCLUDING THE PATIENT. Interpretation Summary * Name: HEDY PHELPS Study Date: 08/10/2017 09:14 AM BP: 104/65 mmHg * Patient Location: C.2T\S\S238\S\1 HR: 67 * : 1955 (M/d/yyyy) Gender: Male Height: 67 in * Age: 61 yrs Ethnicity: CA Weight: 225 lb * Ordering Physician: Kan Rivera * Referring Physician: Self, Referred * Performed By: Lon Osorio RDCS * * Reason For Study: Abnormal EKG * BSA: 2.1 m2 * This was essentially a normal study. * -- Conclusions -- * Left ventricular systolic function is normal. * Normal diastolic function * Right ventricular systolic pressure is normal. Procedure Details * A complete two-dimensional transthoracic echocardiogram was performed (2D, M-mode, Doppler and color flow Doppler). * The study was technically difficult, but visualization was adequate with the administration of Definity ultrasound contrast. * A contrast injection of Definity was performed to improve assessment of LV function. * Contrast was injected into an intravenous site in the left arm. * One vial of Definity ultrasound contrast was diluted in normal saline to a total volume of 10 ml. A total of '3' ml of solution was administered during imaging. * Lot # [id number] of Definity utilized for procedure. * Expiration date 1APR19. * The attending nurse who injected the contrast agent was Shilpa Greenberg RN. Left Ventricle * The left ventricle is normal in size. * There is normal left ventricular wall thickness. * Focal thickening of the basal septum with no evidence of left ventricular outflow obstruction. * Left ventricular systolic function is normal. * Normal diastolic function * Ejection Fraction = 60-65%. * The left ventricular wall motion is normal. Right Ventricle * The right ventricle is normal in size and function. * The right ventricular systolic function is normal as assessed by tricuspid annular plane systolic excursion (TAPSE) (normal >1.5 cm). Atria * The left atrial size is normal. * Right atrial size is normal. Mitral Valve * The mitral valve anatomy is normal. * Significant mitral regurgitation is absent. Tricuspid Valve * The tricuspid valve is not well visualized, but is grossly normal. * There is trace tricuspid regurgitation. * Right ventricular systolic pressure is normal. Aortic Valve * The aortic valve is normal in structure and function. * The aortic valve is trileaflet. * No hemodynamically significant valvular aortic stenosis. * There is no significant aortic regurgitation. Pulmonic Valve * The pulmonic valve is not well visualized. Great Vessels * The aortic root is normal size. Pericardium/Pleural * There is no pericardial effusion. MMode 2D Measurements and Calculations IVSd 1.0 cm IVSs 1.6 cm LVIDd 5.0 cm LVIDs 3.0 cm LVPWd 1.0 cm LVPWs 1.6 cm IVS/LVPW 1.0 FS 41.0 % EDV(Teich) 118.6 ml ESV(Teich) 33.6 ml EF(Teich) 71.6 % EDV(cubed) 125.5 ml ESV(cubed) 25.7 ml EF(cubed) 79.5 % % IVS thick 59.8 % % LVPW thick 60.0 % LV mass(C)d 183.3 grams LV mass(C)dI 86.2 grams/m\S\2 LV mass(C)s 173.9 grams LV mass(C)sI 81.8 grams/m\S\2 SV(Teich) 85.0 ml SI(Teich) 40.0 ml/m\S\2 SV(cubed) 99.8 ml SI(cubed) 46.9 ml/m\S\2 Ao root diam 3.2 cm Ao root area 7.9 cm\S\2 ACS 2.1 cm asc Aorta Diam 3.2 cm LVOT diam 2.1 cm LVOT area 3.5 cm\S\2 LVAd ap4 30.0 cm\S\2 LVLd ap4 8.7 cm EDV(MOD-sp4) 87.3 ml EDV(sp4-el) 88.1 ml LVAs ap4 17.8 cm\S\2 LVLs ap4 8.1 cm ESV(MOD-sp4) 32.5 ml ESV(sp4-el) 32.9 ml EF(MOD-sp4) 62.8 % EF(sp4-el) 62.7 % LVAd ap2 25.2 cm\S\2 LVLd ap2 8.4 cm EDV(MOD-sp2) 62.7 ml EDV(sp2-el) 64.2 ml LVAs ap2 14.7 cm\S\2 LVLs ap2 7.8 cm ESV(MOD-sp2) 22.9 ml ESV(sp2-el) 23.6 ml EF(MOD-sp2) 63.5 % EF(sp2-el) 63.2 % LVLd %diff -2.86 % EDV(MOD-bp) 74.8 ml LVLs %diff -4.53 % ESV(MOD-bp) 27.6 ml EF(MOD-bp) 63.0 % SV(MOD-sp4) 54.8 ml SI(MOD-sp4) 25.8 ml/m\S\2 SV(MOD-sp2) 39.9 ml SI(MOD-sp2) 18.8 ml/m\S\2 SV(MOD-bp) 47.1 ml SI(MOD-bp) 22.2 ml/m\S\2 SV(sp4-el) 55.3 ml SI(sp4-el) 26.0 ml/m\S\2 SV(sp2-el) 40.6 ml SI(sp2-el) 19.1 ml/m\S\2 Doppler Measurements and Calculations MV E max ivette 115.2 cm/sec MV A max ivette 72.7 cm/sec MV E/A 1.6 MV dec time 0.18 sec Ao V2 max 179.0 cm/sec Ao max PG 12.8 mmHg Ao max PG (full) 3.6 mmHg PATRICIA(V,A) 2.9 cm\S\2 PATRICIA(V,D) 2.9 cm\S\2 LV V1 max PG 9.2 mmHg LV V1 max 151.4 cm/sec PA V2 max 134.8 cm/sec PA max PG 7.3 mmHg TR max ivette 250.7 cm/sec
--- NOTE | 2017-08-10 13:21 | Hospitalist Progress Note ---
Hospitalist Progress Note Date of Service Aug 10, 2017. (Delia Sommer ., PA-C) Subjective Pt evaluation today including: conversation w/ patient, physical exam, lab review, review of studies, review of inpatient medication list Voiding: no voiding problems Patient resting in bed. Alert/oriented x3. Feeling well. Notes sinus congestion, cough w/ dark sputum production. Denies SOB. +periodic dizziness. Denies any medications changes and states taking all medications as prescribed. Does have h/o FAITH but doesn't like the mask so is non-complaint. Eating and drinking OK. Patient denies any fever, chills, sweats, lightheadedness, vision changes, CP, palpitations, edema, SOB, wheezing, abdominal pain, nausea, vomiting, diarrhea, urinary symptoms, melena, numbness/tingling, weakness, muscle/joint pain, anxiety/depression, active bleeding, or new skin discoloration/changes. (Delia Sommer ., PA-C) Medications Current Inpatient Medications Medications (Trade) Dose Ordered Sig/Colton Route Start Time Stop Time Status Last Admin Dose Admin Ioversol (Optiray 320) 100 ml UD PRN IV 08/09/17 15:45 08/13/17 15:44 Acetaminophen (Tylenol Tab) 650 mg Q4H PRN PO 08/09/17 22:00 09/08/17 21:59 Al Hydrox/Mg Hydrox/Simethicone (Maalox Max Susp) 15 ml Q4H PRN PO 08/09/17 22:00 09/08/17 21:59 Magnesium Hydroxide (Milk Of Magnesia Susp) 30 ml Q12H PRN PO 08/09/17 22:00 09/08/17 21:59 Ondansetron HCl (Zofran Inj) 4 mg Q6H PRN IV 08/09/17 22:00 09/08/17 21:59 Polyethylene (Miralax Powder Packet) 17 gm DAILY PRN PO 08/09/17 22:00 09/08/17 21:59 Miscellaneous (Iv Fluids Completed) 1 ea PRN PRN N/A 08/09/17 23:00 08/09/18 22:59 Atorvastatin Calcium (Lipitor Tab) 80 mg DAILY PO 08/10/17 09:00 09/09/17 08:59 08/10/17 07:53 80 MG Fluoxetine HCl (Prozac Cap) 40 mg QAM PO 08/10/17 09:00 09/09/17 08:59 08/10/17 07:54 40 MG Gabapentin (Neurontin Tab) 600 mg TID PO 08/10/17 09:00 09/09/17 08:59 08/10/17 07:50 600 MG Ropinirole HCl (Requip Tab) 1 mg AMHS PO 08/10/17 09:00 09/09/17 08:59 08/10/17 07:50 1 MG Tamsulosin HCl (Flomax Cap) 0.4 mg DAILY PO 08/10/17 09:00 09/09/17 08:59 08/10/17 07:53 0.4 MG Pantoprazole Sodium (Protonix Tab) 40 mg BID PO 08/10/17 09:00 09/09/17 08:59 08/10/17 07:51 40 MG Senna/Docusate Sodium (Senokot S Tab) 1 tab DAILY PRN PO 08/09/17 23:00 09/08/17 22:59 Insulin Aspart (novoLOG ASPART) SLIDING SCALE G... ACHS SC 08/10/17 07:00 09/09/17 06:59 08/10/17 12:09 1 UNITS Glucose (Glucose 40% Gel) 15-30 GRAMS 15 GRAMS... UD PRN PO 08/09/17 23:45 09/08/17 23:44 Glucose (Glucose Chew Tab) 4-8 Tablets 4 Tabl... UD PRN PO 08/09/17 23:45 09/08/17 23:44 Dextrose (Dextrose 50% 50ML Syringe) 25-50ML OF 50% DW IV FOR... UD PRN IV 08/09/17 23:45 09/08/17 23:44 Glucagon (Glucagon Inj) 1 mg UD PRN SQ 08/09/17 23:45 09/08/17 23:44 Albuterol/ Ipratropium (Duoneb) 3 ml Q6H PRN INH 08/10/17 00:15 09/09/17 00:14 (Delia Sommer, MEDHAT) Objective Vital Signs Date Time Temp Pulse Resp B/P (MAP) Pulse Ox O2 Delivery O2 Flow Rate FiO2 08/10/17 12:27 36.6 68 18 140/71 (94) 95 08/10/17 12:15 Nasal Cannula 2.0 08/10/17 08:07 36.5 72 18 106/63 (77) 96 08/10/17 08:00 Nasal Cannula 2.0 08/10/17 04:20 Nasal Cannula 08/10/17 03:30 37.0 59 16 104/65 (78) 97 Nasal Cannula 2.0 08/10/17 00:40 Nasal Cannula 08/09/17 23:58 36.8 70 15 103/65 90 Room Air 08/09/17 23:16 83/56 08/09/17 23:11 62 17 97 08/09/17 23:01 78/47 08/09/17 22:46 80/51 08/09/17 22:41 66 24 95 08/09/17 22:36 61 94 Room Air 3.0 08/09/17 22:35 83/54 08/09/17 22:16 85/52 08/09/17 22:06 64 12 98 08/09/17 22:01 97/64 08/09/17 21:51 114/69 08/09/17 21:36 65 17 99 08/09/17 21:31 101/67 08/09/17 21:16 98/63 08/09/17 21:06 66 98 08/09/17 21:01 80/52 08/09/17 20:51 63 18 98 Nasal Cannula 3.0 08/09/17 20:46 97/61 08/09/17 20:38 69 08/09/17 20:32 98/47 08/09/17 20:21 72 26 98 08/09/17 20:17 108/57 08/09/17 19:46 101/65 08/09/17 19:45 61 23 99 Nasal Cannula 3.0 08/09/17 19:35 101/61 08/09/17 19:31 98/67 08/09/17 19:20 83/54 08/09/17 19:18 88/53 08/09/17 19:15 60 13 08/09/17 19:14 84/54 08/09/17 19:12 93/55 08/09/17 19:07 87/52 08/09/17 19:02 84/57 08/09/17 19:00 96/55 08/09/17 19:00 60 14 84/57 98 Nasal Cannula 3.0 08/09/17 18:02 65 16 93/59 98 Room Air 08/09/17 17:02 68 08/09/17 16:40 67 16 105/58 96 Nasal Cannula 3.0 08/09/17 15:07 95 Nasal Cannula 3.0 08/09/17 15:06 86 Room Air 08/09/17 14:09 37.0 72 16 99/55 90 Room Air 08/09/17 14:07 90 Room Air (Delia Sommer ., PA-C) Physical Exam General Appearance: no apparent distress, + obese, + pertinent finding (O2 NC 2L) Eyes: normal inspection, PERRL ENT: hearing grossly normal Neck: supple Respiratory/Chest: no respiratory distress, no accessory muscle use, + pertinent finding (coarse breath sounds throughout- only able to auscultate anterior as patient cannot reposition due to severe back pain ) Cardiovascular: regular rate, rhythm Abdomen: normal bowel sounds, non tender, soft Extremities: no calf tenderness, + swelling (+1 pitting edema to BLEs) Neurologic/Psychiatric: alert, normal mood/affect, oriented x 3 Skin: normal color, warm/dry, no rash (Delia Sommer ., PA-C) Laboratory Results Last 24 Hours Test 08/09/17 14:55 08/09/17 21:30 08/09/17 21:54 08/09/17 23:10 White Blood Count 9.87 K/uL Red Blood Count 3.48 M/uL Hemoglobin 11.2 g/dL Hematocrit 33.3 % Mean Corpuscular Volume 95.7 fL Mean Corpuscular Hemoglobin 32.2 pg Mean Corpuscular Hemoglobin Concent 33.6 g/dl Platelet Count 195 K/uL Mean Platelet Volume 10.4 fL Neutrophils (%) (Auto) 63.8 % Lymphocytes (%) (Auto) 21.0 % Monocytes (%) (Auto) 13.9 % Eosinophils (%) (Auto) 0.6 % Basophils (%) (Auto) 0.4 % Neutrophils # (Auto) 6.30 K/uL Lymphocytes # (Auto) 2.07 K/uL Monocytes # (Auto) 1.37 K/uL Eosinophils # (Auto) 0.06 K/uL Basophils # (Auto) 0.04 K/uL RDW Standard Deviation 44.5 fL RDW Coefficient of Variation 12.8 % Immature Granulocyte % (Auto) 0.3 % Immature Granulocyte # (Auto) 0.03 K/uL Prothrombin Time 10.9 SECONDS Prothromb Time International Ratio 1.0 D-Dimer 680 ug/L FEU Sodium Level 132 mmol/L Potassium Level 4.1 mmol/L Chloride Level 96 mmol/L Carbon Dioxide Level 30 mmol/L Anion Gap 6.0 mmol/L Blood Urea Nitrogen 20 mg/dl Creatinine 1.28 mg/dl Est Creatinine Clear Calc Drug Dose 69.2 ml/min Estimated GFR () 69.5 Estimated GFR (Non- 60.0 BUN/Creatinine Ratio 15.7 Random Glucose 125 mg/dl Calcium Level 9.0 mg/dl Total Bilirubin 1.1 mg/dl Aspartate Amino Transf (AST/SGOT) 14 U/L Alanine Aminotransferase (ALT/SGPT) 18 U/L Alkaline Phosphatase 98 U/L Troponin I < 0.015 ng/ml Pro-B-Type Natriuretic Peptide 388 pg/ml Total Protein 7.5 gm/dl Albumin 3.4 gm/dl Globulin 4.1 gm/dl Albumin/Globulin Ratio 0.8 Thyroid Stimulating Hormone (TSH) 1.240 uIu/ml Influenza Type A Antigen Neg for Influ A Influenza Type B Antigen Neg for Influ B Bedside Blood Gas pH (LAB) 7.31 Bedside Blood Gas pCO2 (LAB) 56 mmHg Bedside Blood Gas pO2 (LAB) 86 mmHg Bedside Blood Gas HCO3 (LAB) 28 meq/L Bedside Blood Gas Total CO2 30 mEq/l Bedside Blood Gas Base Excess (LAB) 2.0 meq/L Bedside Blood Gas O2 Saturation 95.0 % Procalcitonin < 0.05 ng/ml Test 08/10/17 00:10 08/10/17 05:58 08/10/17 06:53 08/10/17 11:22 Arterial Blood pH 7.35 Arterial Blood Partial Pressure CO2 52 mmHg Arterial Blood Partial Pressure O2 86 mm/Hg Arterial Blood HCO3 28 mmol/L Arterial Blood Oxygen Saturation 95.1 % Arterial Blood Base Excess 1.5 mEq/L Arterial Blood Gas Delivery 2L Ryan Test POS Lactic Acid Level 0.5 mmol/L Ammonia 21.0 umol/L Sodium Level 136 mmol/L Potassium Level 4.1 mmol/L Chloride Level 104 mmol/L Carbon Dioxide Level 29 mmol/L Anion Gap 3.0 mmol/L Blood Urea Nitrogen 16 mg/dl Creatinine 0.94 mg/dl Est Creatinine Clear Calc Drug Dose 92.5 ml/min Estimated GFR () 101.0 Estimated GFR (Non- 87.2 BUN/Creatinine Ratio 16.5 Random Glucose 137 mg/dl Calcium Level 8.8 mg/dl Magnesium Level 1.7 mg/dl Bedside Glucose 134 mg/dl 198 mg/dl (Delia Sommer, PA-C) Assessment and Plan 61 y/o M Hx HTN, HPL, BPH, FAITH, obese. The pt was brought to the ER at [facility]. They describe an unsteady gait and 3 separate falls recently in addition to progressive confusion. It is unknown if had sustained any head trauma during his falls. The pt's also states that he has been coughing over the past 4 days. The pt is somnolent and did not meaningfully contribute to the HPI. He states that he had "a fit" and when asked to elaborate, a relative volunteered that he had broken off the faucet in the bathtub. He also states that he has been persistently lightheaded and voiced concern over progressive lower extremity edema which he states is new over the past few weeks. On arrival to the ER, it was noted that the pt was hypoxic into the 80s and that his SBP was low, occasionally below 90. His BP did respond to a fluid bolus which did not in turn, worsen his respiratory status. Initial labs revealed an elevated D dimer. The pt was subsequently sent for a CTA which was negative for PE, but did show BL basilar infiltrates consistent with an inflammatory process. An EKG is abnormal indicating LVH and possibly a previous inferior infarct. 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, h/o FAITH- non-complaint, ?PNA: - Admitted to tele for cardiac monitoring- no acute events - Trend cardiac enzymes- negative x1 - O2 protocol, wean as tolerated- does NOT have O2 supplement at home- currently on 2L @ 95% - DuoNebs QID PRN for sob/wheezing - Echocardiogram- unremarkable - FAITH- non-complaint- will need repeat sleep study outpatient - IV Zosyn and Levaquin x1 in ED on 08/10- will continue Levaquin 750 mg daily for coverage of sinusitis/possible PNA - CTA of chest- no PE, mild bibasilar changes, possibly inflammatory- notes cough w/ dark sputum production- no fevers, WBC, procalcitonin and lactic acid WNL - Head CT- paranasal sinus disease- notes sinus congestion, pressure, dizziness - no h/o sinusitis - BCx pending; UA negative; influenza negative Metabolic encephalopathy, ?secondary to hypoxia vs infection vs polypharmacy- RESOLVED Unsteady gait, falls: - Head CT negative for hemorrhage or ischemia - PT/OT consulted Hypotension likely secondary to dehydration w/ h/o HTN- RESOLVED: - Treated w/ IVF - Held Lisinopril 10 mg daily- BPs stable- likely resume tomorrow AM Hypomagnesium: Replace w/ IV Mag- follow and replace PRN Mild hyponatremia likely secondary to dehydration- RESOLVED: Treated w/ IVF BLE edema: - ECHO- unremarkable - BLE venous Doppler- negative for DVT T2DM w/ hyperglycemia- last hgbA1 in 01/2017 6.8%: - Hold Metformin 500 mg BID while inpatient - Lantus 8 u SQ x1 now- adjust Lantus PRN - BSG ACHS and ISS - Recheck hgbA1c Peripheral neuropathy, RLS: Continue Gabapentin 600 mg TID, Requip 1 mg BID Chronic intractable lower back pain on Morphine pump- follows w/ Dr. Mercer HLD: Continue Lipitor 80 mg daily Depression: Fluoxetine 40 mg daily BPH- STABLE: Continue Flomax and Proscar GERD: Continue Zantac daily, Protonix daily while inpatient- resume Prilosec at discharge DVT prophylaxis: Lovenox SQ daily Code status: LEVEL I, FULL Dispo: From home- PT/OT and CM consulted- possible discharge tomorrow (Delia Sommer PA-C) Reviewed: Pt Seen/Exam by Me (Anabel Mueller MD) History Physician Automotive Service Cashier Supervision Note: I interviewed and examined the patient. Discussed with SHADI Sommer and agree with findings and plan as documented in the note. Any exceptions or clarifications are listed here: Pt feeling SOB with exertion which has been going on for 2-3 years but worse with his bad cough the last few days. Pt does not recall ever having formal PFTs , but outpt chart shows he had normal PFTs in 2014. He reports he once was on an inhaler but ran out a long time ago-outpt record shows Combivent prescribed in 2017. Pt has been having a frontotemporal headache off and on for several days as well. Is having another headache now and just took tylenol. Vitals reviewed NAD, obese, RRR no mgr +diffuse rhonchi and wheezes, decreased BS throughout, crackles at bases 1+ pitting edema bilat LEs ECHO normal Pt is a 61 y/o M Hx HTN, HPL, BPH, FAITH, and obesity. Presented with unsteady gait and 3 separate falls recently in addition to progressive confusion, found to be in acute hypoxic resp failure, suspected bilateral PNA, hypotensive, and with acute sinusitis seen on CT. -continue Levaquin to cover for acute sinusitis and PNA -needs repeat formal PFTs as outpt after recovery from acute illness -wean O2 as able to, but may need 2 step prior to discharge -BPs improved and iVFs stopped -start prednisone 60mg daily, Mucinex, make Duonebs scheduled given the extensive rhonchi and wheezing, suspected underlying COPD -flutter valve Documented By: Anabel Mueller (Anabel Mueller MD)
[2017-08-10] MEDS ORDERED: INSULIN GLARGINE SOLOSTAR 100 UNITS/ML 3 ML PEN SC ONE (13:35)
[2017-08-10] MEDS: ACETAMINOPHEN 325 MG TAB PO PRN (15:27)
[2017-08-10] MEDS ORDERED: ALBUT/IPRATROP 3MG/0.5MG NEB 3 ML VIAL INH ONE (18:43)
[2017-08-10] MEDS: GUAIFENESIN 600 MG TABCR PO SCH (21:16)
[2017-08-11] VITALS (8 sets, daily range): BP systolic 101–113; BP diastolic 61–69; PULSE 56–76; TEMP 36.5–36.7; O2SAT 90–99
[2017-08-11] MEDS: ALBUT/IPRATROP 3MG/0.5MG NEB 3 ML VIAL INH SCH ×4 (02:04→19:01)
[2017-08-11] MEDS: GUAIFENESIN 600 MG TABCR PO SCH ×2 (07:54→20:32)
[2017-08-11] MEDS: PANTOprazole SOD 40 MG TAB PO SCH ×2 (07:55→20:33)
[2017-08-11] MEDS: TAMSULOSIN HCL 0.4 MG CAP PO SCH (07:55)
[2017-08-11] MEDS: ROPINIROLE HCL 1 MG TAB PO SCH ×2 (07:55→20:32)
[2017-08-11] MEDS: GABAPENTIN 600 MG TAB PO SCH ×3 (07:55→20:33)
[2017-08-11] MEDS: RANITIDINE HCL 150 MG TAB PO SCH (07:56)
[2017-08-11] MEDS: ATORVASTATIN 40 MG TAB PO SCH (07:56)
[2017-08-11] MEDS: FLUOXETINE HCL 20 MG CAP PO SCH (07:56)
[2017-08-11] MEDS: ENOXAPARIN 40 MG/0.4 ML SYR SQ SCH (07:57)
[2017-08-11] MEDS ORDERED: LISINOPRIL 10 MG TAB PO SCH (08:00)
[2017-08-11] MEDS: INSULIN ASPART 100 UNITS/ML 3 ML PEN SC SCH ×4 (08:05→20:31)
[2017-08-11] MEDS: ACETAMINOPHEN 325 MG TAB PO PRN (08:06)
[2017-08-11] MEDS ORDERED: INSULIN GLARGINE SOLOSTAR 100 UNITS/ML 3 ML PEN SC ONE (10:30)
[2017-08-11] MEDS ORDERED: SODIUM CHLORIDE 0.9% 500ML 500 ML IV ONE (12:30)
--- NOTE | 2017-08-11 12:32 | Hospitalist Progress Note ---
Hospitalist Progress Note Date of Service Aug 11, 2017. (Delia Sommer ., PA-C) Subjective Pt evaluation today including: conversation w/ patient, physical exam, lab review, review of inpatient medication list Voiding: no voiding problems Patient sitting in bedside chair. Feels cough, SOB, and nasal congestion is slightly improved since yesterday. Eating and drinking OK. Took patient off O2 supplement and sats dropped into the mid 80s. +chronic back pain. +fatigue. +weakness. Mild tremor- believes from DuoNebs Restarted Lisinopril this AM- ?low BP causing worsening fatigue, weakness, jitteriness- noon BP at 101/61- stop Lisinopril, will give 500 cc NS now Patient denies any fever, chills, sweats, lightheadedness, dizziness, vision changes, CP, palpitations, edema, wheezing, abdominal pain, nausea, vomiting, diarrhea, urinary symptoms, melena, numbness/tingling, anxiety/depression, active bleeding, or new skin discoloration/changes. (Delia Sommer ., PA-C) Medications Current Inpatient Medications Medications (Trade) Dose Ordered Sig/Colton Route Start Time Stop Time Status Last Admin Dose Admin Ioversol (Optiray 320) 100 ml UD PRN IV 08/09/17 15:45 08/13/17 15:44 Acetaminophen (Tylenol Tab) 650 mg Q4H PRN PO 08/09/17 22:00 09/08/17 21:59 08/11/17 08:06 650 MG Al Hydrox/Mg Hydrox/Simethicone (Maalox Max Susp) 15 ml Q4H PRN PO 08/09/17 22:00 09/08/17 21:59 Magnesium Hydroxide (Milk Of Magnesia Susp) 30 ml Q12H PRN PO 08/09/17 22:00 09/08/17 21:59 Ondansetron HCl (Zofran Inj) 4 mg Q6H PRN IV 08/09/17 22:00 09/08/17 21:59 Polyethylene (Miralax Powder Packet) 17 gm DAILY PRN PO 08/09/17 22:00 09/08/17 21:59 Miscellaneous (Iv Fluids Completed) 1 ea PRN PRN N/A 08/09/17 23:00 08/09/18 22:59 Atorvastatin Calcium (Lipitor Tab) 80 mg DAILY PO 08/10/17 09:00 09/09/17 08:59 08/11/17 07:56 80 MG Fluoxetine HCl (Prozac Cap) 40 mg QAM PO 08/10/17 09:00 09/09/17 08:59 08/11/17 07:56 40 MG Gabapentin (Neurontin Tab) 600 mg TID PO 08/10/17 09:00 09/09/17 08:59 08/11/17 07:55 600 MG Ropinirole HCl (Requip Tab) 1 mg AMHS PO 08/10/17 09:00 09/09/17 08:59 08/11/17 07:55 1 MG Tamsulosin HCl (Flomax Cap) 0.4 mg DAILY PO 08/10/17 09:00 09/09/17 08:59 08/11/17 07:55 0.4 MG Pantoprazole Sodium (Protonix Tab) 40 mg BID PO 08/10/17 09:00 09/09/17 08:59 08/11/17 07:55 40 MG Senna/Docusate Sodium (Senokot S Tab) 1 tab DAILY PRN PO 08/09/17 23:00 09/08/17 22:59 Insulin Aspart (novoLOG ASPART) SLIDING SCALE G... ACHS SC 08/10/17 07:00 09/09/17 06:59 08/11/17 08:05 2 UNITS Glucose (Glucose 40% Gel) 15-30 GRAMS 15 GRAMS... UD PRN PO 08/09/17 23:45 09/08/17 23:44 Glucose (Glucose Chew Tab) 4-8 Tablets 4 Tabl... UD PRN PO 08/09/17 23:45 09/08/17 23:44 Dextrose (Dextrose 50% 50ML Syringe) 25-50ML OF 50% DW IV FOR... UD PRN IV 08/09/17 23:45 09/08/17 23:44 Glucagon (Glucagon Inj) 1 mg UD PRN SQ 08/09/17 23:45 09/08/17 23:44 Lisinopril (Zestril Tab) 10 mg DAILY PO 08/11/17 08:00 09/10/17 08:59 08/11/17 07:57 10 MG Ranitidine HCl (zANTac TAB) 300 mg DAILY PO 08/11/17 08:00 09/10/17 08:59 08/11/17 07:56 300 MG Enoxaparin Sodium (Lovenox Inj) 40 mg QAM SQ 08/11/17 08:00 09/10/17 08:59 08/11/17 07:57 40 MG Levofloxacin (Levaquin Tab) 750 mg DAILY@2300 PO 08/11/17 23:00 08/18/17 22:59 Albuterol/ Ipratropium (Duoneb) 3 ml Q6R INH 08/11/17 03:00 09/10/17 02:59 08/11/17 07:06 3 ML Guaifenesin (Mucinex Contr Rel Tab) 1,200 mg Q12 PO 08/10/17 21:00 09/09/17 20:59 08/11/17 07:54 1,200 MG Prednisone (PredniSONE TAB) 60 mg DAILY PO 08/11/17 08:00 09/10/17 07:59 08/11/17 07:55 60 MG (Delia Sommer ., PA-C) Objective Vital Signs Date Time Temp Pulse Resp B/P (MAP) Pulse Ox O2 Delivery O2 Flow Rate FiO2 08/11/17 08:00 Nasal Cannula 2.0 08/11/17 07:37 36.5 66 16 110/69 (83) 99 08/11/17 07:08 68 16 95 Nasal Cannula 2.0 08/11/17 02:05 59 16 92 Room Air 08/11/17 00:00 96 Nasal Cannula 2.0 08/10/17 23:19 36.8 62 20 102/55 (71) 94 2.0 08/10/17 20:45 61 16 96 Nasal Cannula 2.0 08/10/17 15:47 Nasal Cannula 2.0 08/10/17 14:51 36.8 66 20 122/72 (89) 96 08/10/17 14:17 36.6 68 18 95 2.0 08/10/17 12:27 36.6 68 18 140/71 (94) 95 08/10/17 12:15 Nasal Cannula 2.0 (Delia Sommer, PA-C) Physical Exam General Appearance: no apparent distress, + obese, + pertinent finding (O2 NC) Eyes: normal inspection, PERRL ENT: hearing grossly normal Neck: supple Respiratory/Chest: no respiratory distress, no accessory muscle use, + crackles (bilateral lung bases ), + rhonchi (throughout), + pertinent finding (better air movement today ) Cardiovascular: regular rate, rhythm Abdomen: normal bowel sounds, non tender, soft Extremities: no calf tenderness, + swelling (trace pitting edema to BLEs) Neurologic/Psychiatric: alert, normal mood/affect, oriented x 3 Skin: normal color, warm/dry, no rash (Delia Sommer ., PA-C) Laboratory Results Last 24 Hours Test 08/10/17 12:57 08/10/17 13:42 08/10/17 16:20 08/10/17 20:45 Urine Color YELLOW Urine Appearance CLEAR Urine pH 6.0 Urine Specific [place] 1.013 Urine Protein NEG Urine Glucose (UA) TRACE Urine Ketones NEG Urine Occult Blood NEG Urine Nitrite NEG Urine Bilirubin NEG Urine Urobilinogen NEG Urine Leukocyte Esterase NEG Urine WBC (Auto) 1-5 /hpf Urine RBC (Auto) 0-4 /hpf Urine Hyaline Casts (Auto) 0 /lpf Urine Epithelial Cells (Auto) 0-5 /lpf Urine Bacteria (Auto) NEG Troponin I < 0.015 ng/ml Bedside Glucose 107 mg/dl 128 mg/dl Test 08/11/17 05:37 08/11/17 07:42 08/11/17 11:52 Bedside Glucose 214 mg/dl 259 mg/dl (Delia Sommer ., PA-C) Assessment and Plan 61 y/o M Hx HTN, HPL, BPH, FAITH, obese. The pt was brought to the ER at [facility]. They describe an unsteady gait and 3 separate falls recently in addition to progressive confusion. It is unknown if had sustained any head trauma during his falls. The pt's also states that he has been coughing over the past 4 days. The pt is somnolent and did not meaningfully contribute to the HPI. He states that he had "a fit" and when asked to elaborate, a relative volunteered that he had broken off the faucet in the bathtub. He also states that he has been persistently lightheaded and voiced concern over progressive lower extremity edema which he states is new over the past few weeks. On arrival to the ER, it was noted that the pt was hypoxic into the 80s and that his SBP was low, occasionally below 90. His BP did respond to a fluid bolus which did not in turn, worsen his respiratory status. Initial labs revealed an elevated D dimer. The pt was subsequently sent for a CTA which was negative for PE, but did show BL basilar infiltrates consistent with an inflammatory process. An EKG is abnormal indicating LVH and possibly a previous inferior infarct. 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, h/o FAITH- non-complaint, ?PNA: - Admitted to tele for cardiac monitoring- no acute events- transferred to med/ surg - Trend cardiac enzymes- negative x2 - O2 protocol, wean as tolerated- does NOT have O2 supplement at home- currently on 2L - DuoNebs QID PRN for sob/wheezing - Echocardiogram- unremarkable - FAITH- non-complaint- will need repeat sleep study outpatient - ?underlying lung disease- recommend repeat PFTs outpatient - IV Zosyn and Levaquin x1 in ED on 08/10- Levaquin 750 mg daily for coverage of sinusitis/possible PNA - CTA of chest- no PE, mild bibasilar changes, possibly inflammatory- notes cough w/ dark sputum production- no fevers, WBC, procalcitonin and lactic acid WNL - Head CT- paranasal sinus disease- notes sinus congestion, pressure, dizziness - no h/o sinusitis - BCx NGTD; UA negative; influenza negative - Mucinex BID - Prednisone 60 mg daily- started on 08/10 Metabolic encephalopathy, ?secondary to hypoxia vs infection vs polypharmacy- RESOLVED Unsteady gait, falls: - Head CT negative for hemorrhage or ischemia - PT/OT consulted Hypotension likely secondary to dehydration- RESOLVED: Treated w/ IVF HTN: Resumed Lisinopril 10 mg daily today- experienced low BPs again- given 500 cc IV NSS x1 now and stop Lisinopril Hypomagnesium: Replace w/ IV Mag- follow and replace PRN Mild hyponatremia likely secondary to dehydration- RESOLVED: Treated w/ IVF BLE edema: - ECHO- unremarkable - BLE venous Doppler- negative for DVT T2DM w/ hyperglycemia- last hgbA1 in 01/2017 6.8%: - Hold Metformin 500 mg BID while inpatient - Lantus 8 u SQ x1 now- adjust Lantus PRN - BSG ACHS and ISS - hgbA1c pending Peripheral neuropathy, RLS: Continue Gabapentin 600 mg TID, Requip 1 mg BID Chronic intractable lower back pain on Morphine pump- follows w/ Dr. Mercer HLD: Continue Lipitor 80 mg daily Depression: Fluoxetine 40 mg daily BPH- STABLE: Continue Flomax and Proscar GERD: Continue Zantac daily, Protonix daily while inpatient- resume Prilosec at discharge DVT prophylaxis: Lovenox SQ daily Code status: LEVEL I, FULL Dispo: From home- PT/OT and CM consulted Patient will likely need 2 step prior to discharge- likely patient will be able to be discharged tomorrow. Will order 2 step for tomorrow (Delia Sommer, MEDHAT) Reviewed: Pt Seen/Exam by Me (Anabel Mueller MD) History Physician Service Order Dispatcher Chief Supervision Note: I interviewed and examined the patient. Discussed with SHADI Sommer and agree with findings and plan as documented in the note. Any exceptions or clarifications are listed here: Cough is improved, still sinus congestion, headache improved. is present and is concerned about his episodes of delirium when he gets sick. She reports that when he is not sick, he has been having progressively worsening memory issues. Patient feels still weak and still hypoxic when oxygen is removed. Vitals reviewed NAD, obese, RRR no mgr Improved air movement, still with a few scattered wheezes, positive crackles at the bases Trace pitting edema bilat LEs Pt is a 61 y/o M Hx HTN, HPL, BPH, FAITH, and obesity. Presented with unsteady gait and 3 separate falls recently in addition to acute metabolic encephalopathy , found to be in acute hypoxic resp failure, suspected bilateral PNA, hypotensive, and with acute sinusitis seen on CT. -continue Levaquin to cover for acute sinusitis and PNA -needs repeat formal PFTs as outpt after recovery from acute illness-discussed with patient and his -wean O2 as able to, but may need 2 step prior to discharge -BPs improved and iVFs stopped -Taper down prednisone to 50mg daily, continue Mucinex and Duonebs scheduled - suspected underlying COPD -Continue flutter valve -Recommended evaluation by his current neurologist for mild cognitive impairment and subsequent treatment after discharge Documented By: Anabel Mueller (Anabel Mueller MD)
[2017-08-11] MEDS ORDERED: LEVOFLOXACIN 750 MG TAB PO SCH (23:00)
[2017-08-12] VITALS (8 sets, daily range): BP systolic 115–136; BP diastolic 52–75; PULSE 62–89; TEMP 36.6; O2SAT 90–96
[2017-08-12] MEDS: ALBUT/IPRATROP 3MG/0.5MG NEB 3 ML VIAL INH SCH ×3 (01:59→14:06)
[2017-08-12 06:34] LABS: HEMOGLOBIN A1C 8.1 % (4.5-5.6)
[2017-08-12] MEDS: GABAPENTIN 600 MG TAB PO SCH ×2 (08:26→14:42)
[2017-08-12] MEDS: ATORVASTATIN 40 MG TAB PO SCH (08:26)
[2017-08-12] MEDS: ROPINIROLE HCL 1 MG TAB PO SCH (08:26)
[2017-08-12] MEDS: RANITIDINE HCL 150 MG TAB PO SCH (08:27)
[2017-08-12] MEDS: TAMSULOSIN HCL 0.4 MG CAP PO SCH (08:27)
[2017-08-12] MEDS: GUAIFENESIN 600 MG TABCR PO SCH (08:27)
[2017-08-12] MEDS: FLUOXETINE HCL 20 MG CAP PO SCH (08:27)
[2017-08-12] MEDS: PANTOprazole SOD 40 MG TAB PO SCH (08:27)
[2017-08-12] MEDS: ENOXAPARIN 40 MG/0.4 ML SYR SQ SCH (08:32)
[2017-08-12] MEDS: INSULIN ASPART 100 UNITS/ML 3 ML PEN SC SCH ×3 (08:35→17:29)
[2017-08-12 09:22] LABS: HEMATOCRIT 32.3 % (42-52); HEMOGLOBIN 10.5 g/dL (14.0-18.0); IG# 0.04 K/uL (0.00-0.02); LYMPH % 6.1 %; LYMPH ABS # 0.65 K/uL (1.2-3.4); MEAN CELL VOLUME 96.4 fL (80-100); MEAN CORPUSCULAR HEMOGLOBIN 31.3 pg (25-34); MEAN CORPUSCULAR HGB CONC 32.5 g/dl (32-36); MEAN PLATELET VOLUME 10.4 fL (7.4-10.4); MONO % 8.5 %; MONO ABS # 0.91 K/uL (0.11-0.59); PLATELET COUNT 235 K/uL (130-400); RED CELL DISTRIBUTION WIDTH CV 12.7 % (11.5-14.5); RED CELL DISTRIBUTION WIDTH SD 44.8 fL (36.4-46.3)
[2017-08-12 09:53] LABS: CALCIUM 9.3 mg/dl (8.5-10.1); CREATININE 1.42 mg/dl (0.60-1.40); POTASSIUM 4.2 mmol/L (3.5-5.1)
[2017-08-12] MEDS ORDERED: GFNSR600 PO (14:37)
[2017-08-12] MEDS ORDERED: LVQ750 PO (14:37)
[2017-08-12] MEDS ORDERED: PRED10TA PO (14:37)
[2017-08-12] MEDS ORDERED: VNTHFA/IN INH (14:37)
--- NOTE | 2017-08-12 14:43 | Discharge Instructions ---
Discharge Instructions Date of Service Aug 12, 2017. Admission Reason for Admission: Altered Mental Status, Hypoxia, pneumonia Discharge Discharge Diagnosis / Problem: Hypoxia, delirium, pneumonia, acute sinusitis Discharge Goals Goal(s): Improve disease control, Diagnostic testing, Therapeutic intervention Activity Recommendations Activity Limitations: as noted below Exercise/Sports Limitations: gradually increase as tolerated Shower/Bathe: no limitations Driving or Machine Use: No driving until after seen by your family physician . Instructions / Follow-Up Instructions / Follow-Up You were admitted with delirium secondary to the infection in your sinuses and with pneumonia. Your treated with antibiotics and had improvement. He also had significant wheezing in your lungs and he may have underlying lung disease. You should follow-up with your family physician to have testing done to see if you have COPD or asthma. Please finish out the course of antibiotics, as well as a prednisone taper as prescribed. As for the swelling in your legs, you had a thorough workup which was all normal. Please follow-up with your family doctor about this issue. Current Hospital Diet Patient's current hospital diet: AHA Diet (Heart Healthy), Diabetes Type 2 Diet Discharge Diet Recommended Diet: AHA Diet (Heart Healthy), Diabetes Type 2 Diet Procedures Procedures Performed: CT angiogram chest Venous Doppler lower extremities bilaterally Chest x-ray CT head Echocardiogram Pending Studies Studies pending at discharge: yes List of pending studies: Blood culture-final result Laboratory Results Hemoglobin A1c Test 08/11/17 05:37 Range/Units Estimated Average Glucose 186 mg/dl Hemoglobin A1c 8.1 H 4.5-5.6 % Medical Emergencies . Who to Call and When: Medical Emergencies: If at any time you feel your situation is an emergency, please call 911 immediately. . Non-Emergent Contact Non-Emergency issues call your: Primary Care Provider Call Non-Emergent contact if: you have a fever, temperature is above 100.5, your pain is not controlled, your pain is worsening, your pain is unusual for you, your pain is concerning you, you have any medication questions . . "Provider Documentation" section prepared by Anabel Mueller. .
[2017-08-12] MEDS ORDERED: BENZ100C18 PO (14:47)
--- NOTE | 2017-08-12 14:49 | Discharge Summary ---
Discharge Summary Date of Service Aug 12, 2017. Discharge Summary Admission Date: Aug 09, 2017 at 23:21 Discharge Date: Aug 12, 2017 Discharge Disposition: Home with services Principal Diagnosis: Acute metabolic encephalopathy, acute hypoxic respiratory failure,PNA Problems/Secondary Diagnoses: Acute sinusitis 61 y/o M Hx HTN, HPL, BPH, FAIHT, obese. The pt was brought to the ER at [facility]. They describe an unsteady gait and 3 separate falls recently in addition to progressive confusion. It is unknown if had sustained any head trauma during his falls. The pt's also states that he has been coughing over the past 4 days. The pt is somnolent and did not meaningfully contribute to the HPI. He states that he had "a fit" and when asked to elaborate, a relative volunteered that he had broken off the faucet in the bathtub. He also states that he has been persistently lightheaded and voiced concern over progressive lower extremity edema which he states is new over the past few weeks. On arrival to the ER, it was noted that the pt was hypoxic into the 80s and that his SBP was low, occasionally below 90. His BP did respond to a fluid bolus which did not in turn, worsen his respiratory status. Initial labs revealed an elevated D dimer. The pt was subsequently sent for a CTA which was negative for PE, but did show BL basilar infiltrates consistent with an inflammatory process. An EKG is abnormal indicating LVH and possibly a previous inferior infarct. 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, h/o FAITH- non-complaint, ?PNA: - Admitted to tele for cardiac monitoring- no acute events- transferred to med/ surg - Trend cardiac enzymes- negative x2 - O2 protocol, wean as tolerated- does NOT have O2 supplement at home- currently on 2L - DuoNebs QID PRN for sob/wheezing - Echocardiogram- unremarkable - FAITH- non-complaint- will need repeat sleep study outpatient - ?underlying lung disease- recommend repeat PFTs outpatient - IV Zosyn and Levaquin x1 in ED on 08/10- Levaquin 750 mg daily for coverage of sinusitis/possible PNA - CTA of chest- no PE, mild bibasilar changes, possibly inflammatory- notes cough w/ dark sputum production- no fevers, WBC, procalcitonin and lactic acid WNL - Head CT- paranasal sinus disease- notes sinus congestion, pressure, dizziness - no h/o sinusitis - BCx NGTD; UA negative; influenza negative - Mucinex BID - Prednisone 60 mg daily- started on 08/10 Metabolic encephalopathy, ?secondary to hypoxia vs infection vs polypharmacy- RESOLVED Unsteady gait, falls: - Head CT negative for hemorrhage or ischemia - PT/OT consulted Hypotension likely secondary to dehydration- RESOLVED: Treated w/ IVF HTN: Resumed Lisinopril 10 mg daily today- experienced low BPs again- given 500 cc IV NSS x1 now and stop Lisinopril Hypomagnesium: Replace w/ IV Mag- follow and replace PRN Mild hyponatremia likely secondary to dehydration- RESOLVED: Treated w/ IVF BLE edema: - ECHO- unremarkable - BLE venous Doppler- negative for DVT T2DM w/ hyperglycemia- last hgbA1 in 01/2017 6.8%: - Hold Metformin 500 mg BID while inpatient - Lantus 8 u SQ x1 now- adjust Lantus PRN - BSG ACHS and ISS - hgbA1c pending Peripheral neuropathy, RLS: Continue Gabapentin 600 mg TID, Requip 1 mg BID Chronic intractable lower back pain on Morphine pump- follows w/ Dr. Mercer HLD: Continue Lipitor 80 mg daily Depression: Fluoxetine 40 mg daily BPH- STABLE: Continue Flomax and Proscar GERD: Continue Zantac daily, Protonix daily while inpatient- resume Prilosec at discharge DVT prophylaxis: Lovenox SQ daily Code status: LEVEL I, FULL Dispo: From home- PT/OT and CM consulted Patient will likely need 2 step prior to discharge- likely patient will be able to be discharged tomorrow. Will order 2 step for tomorrow (Delia Sommer, [facility]) Reviewed: Pt Seen/Exam by Me (Anabel Mueller MD) History Physician It Application Architect Supervision Note: I interviewed and examined the patient. Discussed with SHADI Sommer and agree with findings and plan as documented in the note. Any exceptions or clarifications are listed here: Cough is improved, still sinus congestion, headache improved. is present and is concerned about his episodes of delirium when he gets sick. She reports that when he is not sick, he has been having progressively worsening memory issues. Patient feels still weak and still hypoxic when oxygen is removed. Vitals reviewed NAD, obese, RRR no mgr Improved air movement, still with a few scattered wheezes, positive crackles at the bases Trace pitting edema bilat LEs Pt is a 61 y/o M Hx HTN, HPL, BPH, FAITH, and obesity. Presented with unsteady gait and 3 separate falls recently in addition to acute metabolic encephalopathy , found to be in acute hypoxic resp failure, suspected bilateral PNA, hypotensive, and with acute sinusitis seen on CT. -continue Levaquin to cover for acute sinusitis and PNA -needs repeat formal PFTs as outpt after recovery from acute illness-discussed with patient and his -wean O2 as able to, but may need 2 step prior to discharge -BPs improved and iVFs stopped -Taper down prednisone to 50mg daily, continue Mucinex and Duonebs scheduled - suspected underlying COPD -Continue flutter valve -Recommended evaluation by his current neurologist for mild cognitive impairment and subsequent treatment after discharge Immunizations: Have You Had Influenza Vaccine: Unknown History of Tetanus Vaccine?: Unknown History of Pneumococcal: Unknown History of Hepatitis B Vaccine: Unknown Procedures: CT head CT angiogram chest Chest x-ray Bilateral lower extremity venous Doppler Echocardiogram Consultations: None Medication Reconciliation New Medications: Albuterol Hfa (Ventolin Hfa) 200 Puffs/53754 Mcg Aers 2 PUFFS INH Q4H for 7 Days, #1 INHALER Benzonatate (Tessalon Perles) 100 Mg Cap 1 CAP PO TID PRN for Cough for 7 Days, #21 CAP Prednisone Tab (Prednisone) 10 Mg Tab 40 MG PO QAM, #10 TAB x 1 day then 30mg daily x 1 day then 20mg daily x 1 day then 10mg daily x 1 day then STOP Guaifenesin Ext Rel (Mucinex Ext Rel) 600 Mg Tabcr 1200 MG PO Q12 for 7 Days, #28 TAB OTC Levofloxacin (Levofloxacin) 750 Mg Tab 750 MG PO DAILY for 4 Days, #4 TAB Continued Medications: Atorvastatin (Lipitor) 40 Mg Tab 80 MG PO DAILY, 0 Refills Ferrous Sulfate (Ferrous Sulfate) 325 Mg Tab 325 MG PO DAILY Fluoxetine (Prozac) 40 Mg Cap 40 MG PO QAM Fluticasone Propionate (Nasal) (Flonase Allergy Relief) 50 Mcg/Act Spr 2 SPRAY JUAQUIN DAILY Gabapentin (Neurontin) 600 Mg Tab 600 MG PO TID Loratadine (Claritin) 10 Mg Tab 10 MG PO DAILY Meclizine Hcl (Meclizine Hcl) 25 Mg Tab 1 TAB PO TID PRN for VERTIGO Metformin Hcl (Glucophage) 500 Mg Tab 500 MG PO BID, TAB Omeprazole (Prilosec) 20 Mg Capcr 20 MG PO BID, 0 Refills Ranitidine (Zantac) 300 Mg Tab 300 MG PO DAILY Ropinirole (Requip) 1 Mg Tab 1 MG PO AMHS Sennosides-Docusate Sodium (Senna S) 1 Tab Tab 1-2 TAB PO DAILY PRN for Constipation Tamsulosin Hcl (Flomax) 0.4 Mg Cap 0.4 MG PO DAILY for 30 Days, #30 CAP 5 Refills Trazodone Hcl (Trazodone) 50 Mg Tab 50-100 MG PO HS PRN for Sleep, TAB Discontinued Medications: Ipratropium-Albuterol (Combivent Respimat) 1 Aer Aer 1 PUFFS INH QID PRN for Shortness of Breath, INH Lisinopril (Zestril) 10 Mg Tab 10 MG PO DAILY, TAB Discharge Exam Patient feeling much improved today. Still some cough and sinus congestion. Not short of breath at rest or with exertion. He ambulated with respiratory therapy and his lowest pulse ox was 90% on room air with ambulation. He does not qualify for home oxygen. He denies chest pain or abdominal pain. He did have a few loose stools last night but none today. He is tolerating regular diet. Blood sugars are improved today with lowering the dose of his prednisone. Vitals reviewed Gen: AAOx3, NAD, obese HEENT: anicteric sclerae, EOMI CV: RRR no mgr nl S1S2 Pulm: CTAB, much improved air movement from yesterday, mild crackles at the left base, no further wheezing or rhonchi Abd: +BS soft NT ND no masses or hernias Ext: Trace pitting edema of the legs bilaterally, right leg and ankle with walking boot on Skin: no rashes, warm/dry Review of Systems: Constitutional: No fever, No chills Eyes: No problem reported ENT: + nasal symptoms Respiratory: + cough, No sputum, No wheezing, No shortness of breath, No dyspnea on exertion Cardiovascular: No chest pain Abdomen: + diarrhea, No pain, No constipation Musculoskeletal: + joint pain (Right ankle), + problem reported (Chronic back pain) Genitourinary - Male: No problem reported Neurologic: No problem reported Psychiatric: No problem reported Endocrine: No problem reported Hematologic / Lymphatic: No problem reported Integumentary: No problem reported Hospital Course 61 y/o M Hx HTN, HPL, BPH, FAITH, obese. The pt was brought to the ER at [facility]. They describe an unsteady gait and 3 separate falls recently in addition to progressive confusion. It is unknown if had sustained any head trauma during his falls. The pt's also states that he has been coughing over the past 4 days. The pt is somnolent and did not meaningfully contribute to the HPI. He states that he had "a fit" and when asked to elaborate, a relative volunteered that he had broken off the faucet in the bathtub. He also states that he has been persistently lightheaded and voiced concern over progressive lower extremity edema which he states is new over the past few weeks. On arrival to the ER, it was noted that the pt was hypoxic into the 80s and that his SBP was low, occasionally below 90. His BP did respond to a fluid bolus which did not in turn, worsen his respiratory status. Initial labs revealed an elevated D dimer. The pt was subsequently sent for a CTA which was negative for PE, but did show BL basilar infiltrates consistent with an inflammatory process. An EKG is abnormal indicating LVH and possibly a previous inferior infarct. 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, h/o FAITH- non-complaint, ?PNA: - Admitted to tele for cardiac monitoring- no acute events- transferred to med/ surg - Trend cardiac enzymes- negative x2 - O2 protocol, wean as tolerated- does NOT have O2 supplement at home- currently on 2L - DuoNebs QID PRN for sob/wheezing - Echocardiogram- unremarkable - FAITH- non-complaint- will need repeat sleep study outpatient - ?underlying lung disease- recommend repeat PFTs outpatient - IV Zosyn and Levaquin x1 in ED on 08/10- Levaquin 750 mg daily for coverage of sinusitis/possible PNA - CTA of chest- no PE, mild bibasilar changes, possibly inflammatory- notes cough w/ dark sputum production- no fevers, WBC, procalcitonin and lactic acid WNL - Head CT- paranasal sinus disease- notes sinus congestion, pressure, dizziness - no h/o sinusitis - BCx NGTD; UA negative; influenza negative - Mucinex BID - Prednisone 60 mg daily- started on 08/10 Metabolic encephalopathy, ?secondary to hypoxia vs infection vs polypharmacy- RESOLVED Unsteady gait, falls: - Head CT negative for hemorrhage or ischemia - PT/OT consulted Hypotension likely secondary to dehydration- RESOLVED: Treated w/ IVF HTN: Resumed Lisinopril 10 mg daily today- experienced low BPs again- given 500 cc IV NSS x1 now and stop Lisinopril Hypomagnesium: Replace w/ IV Mag- follow and replace PRN Mild hyponatremia likely secondary to dehydration- RESOLVED: Treated w/ IVF BLE edema: - ECHO- unremarkable - BLE venous Doppler- negative for DVT T2DM w/ hyperglycemia- last hgbA1 in 01/2017 6.8%: - Hold Metformin 500 mg BID while inpatient - Lantus 8 u SQ x1 now- adjust Lantus PRN - BSG ACHS and ISS - hgbA1c pending Peripheral neuropathy, RLS: Continue Gabapentin 600 mg TID, Requip 1 mg BID Chronic intractable lower back pain on Morphine pump- follows w/ Dr. Mercer HLD: Continue Lipitor 80 mg daily Depression: Fluoxetine 40 mg daily BPH- STABLE: Continue Flomax and Proscar GERD: Continue Zantac daily, Protonix daily while inpatient- resume Prilosec at discharge DVT prophylaxis: Lovenox SQ daily Code status: LEVEL I, FULL Dispo: From home- PT/OT and CM consulted Patient will likely need 2 step prior to discharge- likely patient will be able to be discharged tomorrow. Will order 2 step for tomorrow (Delia Sommer, [facility]) Reviewed: Pt Seen/Exam by Me (Anabel Mueller MD) History Physician It Application Architect Supervision Note: I interviewed and examined the patient. Discussed with SHADI Sommer and agree with findings and plan as documented in the note. Any exceptions or clarifications are listed here: Cough is improved, still sinus congestion, headache improved. is present and is concerned about his episodes of delirium when he gets sick. She reports that when he is not sick, he has been having progressively worsening memory issues. Patient feels still weak and still hypoxic when oxygen is removed. Vitals reviewed NAD, obese, RRR no mgr Improved air movement, still with a few scattered wheezes, positive crackles at the bases Trace pitting edema bilat LEs Pt is a 61 y/o M Hx HTN, HPL, BPH, FAITH, and obesity. Presented with unsteady gait and 3 separate falls recently in addition to acute metabolic encephalopathy , found to be in acute hypoxic resp failure, suspected bilateral PNA, hypotensive, and with acute sinusitis seen on CT. -continue Levaquin to cover for acute sinusitis and PNA -needs repeat formal PFTs as outpt after recovery from acute illness-discussed with patient and his -wean O2 as able to, but may need 2 step prior to discharge -BPs improved and iVFs stopped -Taper down prednisone to 50mg daily, continue Mucinex and Duonebs scheduled - suspected underlying COPD -Continue flutter valve -Recommended evaluation by his current neurologist for mild cognitive impairment and subsequent treatment after discharge Total Time Spent: Greater than 30 minutes This includes examination of the patient, discharge planning, medication reconciliation, and communication with other providers. Discharge Instructions Please refer to the electronic Patient Visit Report (Discharge Instructions) for additional information. Follow-Up With PCP within 1-2 weeks Additional Copies To Yessenia Mares MD
== END 2017-08-12 18:07 | disposition home or self-care (01) | DRG 193 ==
LOC: EDBD 14:01 → C.EDC 14:03 → ENRESERV 22:19 → C.2T 23:21 → ENRESERV 08-10 14:10 → C.4E 08-10 14:48
PROVIDERS: ADMIT Internal Medicine; ATTEND Family Medicine
DX: J18.9 Pneumonia, unspecified organism (principal); J96.01 Acute respiratory failure with hypoxia; G93.41 Metabolic encephalopathy; I10 Essential (primary) hypertension; E78.5 Hyperlipidemia, unspecified; N40.0 Benign prostatic hyperplasia without lower urinary tract symptoms; E66.9 Obesity, unspecified; G47.33 Obstructive sleep apnea (adult) (pediatric); G89.29 Other chronic pain; Z87.891 Personal history of nicotine dependence; E78.1 Pure hyperglyceridemia; I95.9 Hypotension, unspecified; E11.9 Type 2 diabetes mellitus without complications; R60.9 Edema, unspecified

== ENCOUNTER → 2017-09-02 | Outpatient (CLI) | payer OTHER ==
[~2017-09-02] MED LIST changes: +CLR10 PO; +FLUO40CA8 PO; +FLUT0.15 NAE; +GFNSR600 PO; -IPRA1AER2 INH; -LISI-461 PO; +LVQ750 PO; +PRED10TA PO; +RANI300T2 PO; +SENN-91 PO; -[UNRECOGNIZED DRUG - CODE]
[2017-09-02 17:38] LABS: BASO % 0.5 %; BASO ABS # 0.03 K/uL (0-0.2); EOS ABS # 0.19 K/uL (0-0.5); HEMATOCRIT 35.7 % (42-52); HEMOGLOBIN 11.5 g/dL (14.0-18.0); IG# 0.01 K/uL (0.00-0.02); LYMPH % 22.7 %; LYMPH ABS # 1.44 K/uL (1.2-3.4); MEAN CELL VOLUME 98.9 fL (80-100); MEAN CORPUSCULAR HEMOGLOBIN 31.9 pg (25-34); MEAN CORPUSCULAR HGB CONC 32.2 g/dl (32-36); MEAN PLATELET VOLUME 10.8 fL (7.4-10.4); MONO % 10.3 %; MONO ABS # 0.65 K/uL (0.11-0.59); NEUT % 63.3 %; NEUT ABS # 4.02 K/uL (1.4-6.5); PLATELET COUNT 199 K/uL (130-400); RED CELL DISTRIBUTION WIDTH CV 12.8 % (11.5-14.5); RED CELL DISTRIBUTION WIDTH SD 46.6 fL (36.4-46.3); WHITE BLOOD COUNT 6.34 K/uL (4.8-10.8)
--- NOTE | 2017-09-02 18:54 | DIAGNOSTIC IMAGING REPORT ---
CHEST 2 VIEWS ROUTINE HISTORY: 61 years-old Male R05 [id number] acute cough COMPARISON: Chest radiograph 08/09/2017 TECHNIQUE: PA and lateral views of the chest FINDINGS: Patient is rotated to the left. Cardiac silhouette is upper limits of normal in size. There is no pneumothorax, pleural effusion or overt pulmonary edema. Mild right hemidiaphragmatic elevation with subsegmental linear bibasilar opacities. Degenerative changes of the shoulders and spine. IMPRESSION: 1. No acute process. 2. subsegmental bibasilar opacities suggest atelectasis. The above report was generated using voice recognition software. It may contain grammatical, syntax or spelling errors. Electronically signed by: Evans Hilton M.D. 09/02/2017 6:52 PM Dictated Date/Time: 09/02/2017 6:51 PM
== END | disposition home or self-care (01) ==
LOC: C.RAD 17:10
PROVIDERS: ATTEND Nurse Practitioner Family
DX: R05 Cough (principal); R60.9 Edema, unspecified

== ENCOUNTER → 2017-09-04 | Outpatient (CLI) | payer OTHER ==
--- NOTE | 2017-09-04 13:59 | DIAGNOSTIC IMAGING REPORT ---
R LOWER EXT JOINT WITHOUT CLINICAL HISTORY: 61 years-old Male presenting with R ANKLE PAIN. TECHNIQUE: Multisequence, multiplanar MR imaging of the right ankle was performed without the use of intravenous contrast. IV contrast: None. COMPARISON: None. FINDINGS: Localizer images: Unremarkable. Bone marrow: Trace bony edema in the calcaneus near the sinus tarsi, likely degenerative. No other sites of bony edema. Articular cartilage: Articular cartilage preserved. Syndesmotic ligament: Increased signal intensity of the anterior inferior tibiofibular ligament likely suggesting chronic injury or degeneration. Posterior-inferior tibiofibular ligament intact. Interosseous membrane intact. Lateral ligamentous complex: Increased signal intensity of the anterior and posterior talofibular ligaments suggesting chronic degenerative change. Calcaneofibular ligament intact. Deltoid ligament complex: Intact. Anterior tendons: Tibialis anterior, extensor hallucis longus and extensor digitorum longus tendons intact. Lateral tendons: The peroneus brevis tendon is intact to the level of the mid subtalar joint, where increased signal intensity of the tendon is noted to the level of its insertion suggesting tendinosis. The peroneus longus tendon is intact. Medial tendons: Posterior tibialis, flexor digitorum longus and flexor hallucis longus tendons intact. Plantar fascia: Medial and lateral bundles of the plantar fascia intact. No nodularity of the plantar fascia. Achilles tendon: Achilles tendon intact. No retrocalcaneal bursitis. Nonspecific infiltration of Kager fat pad. Sinus tarsi: Increased signal intensity within the sinus tarsi. The intraosseous ligaments are now well delineated. Joint effusion: Small ankle joint effusion. Muscle: Normal muscle bulk and muscle signal intensity. Superficial soft tissue: Diffuse severe subcutaneous edema in the lower leg and foot. IMPRESSION: 1. Findings suggest sinus tarsi syndrome. 2. Nonspecific subcutaneous edema diffusely in the lower leg and foot. Correlate clinically to exclude cellulitis. 3. Degenerative changes/tendinosis of several tendons further detailed above. Electronically signed by: Quang Arevalo M.D. 09/04/2017 1:57 PM Dictated Date/Time: 09/04/2017 1:41 PM
== END | disposition home or self-care (01) ==
LOC: C.MRIBC 11:54
PROVIDERS: ATTEND Orthopaedic Surgery
DX: M25.571 Pain in right ankle and joints of right foot (principal)